=== PATIENT | female | born 1930 | race Caucasian/White ===

== ENCOUNTER 2017-08-06 02:59 | Emergency (ER) | payer OTHER ==
[2017-08-06] MEDS ORDERED: LIDOCAINE 1% 20 ML MDV ONE (03:36)
--- NOTE | 2017-08-06 04:51 | ER ---
Nurse's Notes [facility] Name: Martine Iyer Age: 87 yrs Sex: Female : 1930 Arrival Date: 08/06/2017 Time: 03:01 Bed 17 Private MD: Branden Altamirano Diagnosis: Superficial laceration of left forearm Presentation: 08/06 03:05 Presenting complaint: Patient states: She was getting up to go to the restroom when she ea fell back, she states " I kind of twisted myself and fell onto my bottom and hit the door facing". Pt denies LOC. States " I don't think I hit my head, I hit my left shoulder but I don't remember hitting my head" Reports she has a gash to her left arm. Care prior to arrival: None. Mechanism of Injury: Fall from standing position. Trauma event details: Injury occurred in the [facility], Injury occurred: at home. Injury occurred: August 06, 2017 Injury occurred at: 02:50. 03:05 Acuity: KEAGAN 3 ea 03:05 Method Of Arrival: Wheelchair ea 03:30 Initial Sepsis Screen: Does the patient meet any 2 criteria? No. Patient's initial ea sepsis screen is negative. Does the patient have a suspected source of infection? Yes: Skin breakdown/wound. 03:30 Transition of care: patient was not received from another setting of care. Onset of ea symptoms was August 06, 2017. 03:31 Initial Sepsis Screen: Does the patient meet any 2 criteria?. ea Trauma Activation: Not Applicable Physician: ED Physician; Name: ; Notified At: ; Arrived At: Physician: General Surgeon; Name: ; Notified At: ; Arrived At: Physician: Radiology; Name: ; Notified At: ; Arrived At: Physician: Respiratory; Name: ; Notified At: ; Arrived At: Physician: Lab; Name: ; Notified At: ; Arrived At: Historical: - Allergies: 03:35 Coumadin; ea - Home Meds: 03:35 Bystolic 15 mg Oral tab 1 tab once daily [Active]; clonidine HCl 0.1 mg Oral tab 1 tab ea once daily [Active]; Eliquis 2.5 mg Oral tab 1 tab 2 times per day [Active]; Xanax 1 mg Oral tab 1 tab 3 times per day [Active]; levothyroxine 137 mcg tab 1 tab once daily [Active]; losartan 100 mg Oral tab 1 tab once daily [Active]; Lipitor 20 mg Oral tab 1 tab once daily [Active]; - PMHx: 03:35 Arthritis; Atrial Fib; Hypertension; Hypothyroidism; skin ca; ea - PSHx: 03:35 Knee surgery; Hysterectomy; shoulder; hand; ea - Immunization history:: Adult Immunizations up to date. - Immunization history: Last tetanus immunization: - up to date. - Family history:: not pertinent. - Social history:: Smoking status: Patient/guardian denies using tobacco. - Hospitalizations: : No recent hospitalization is reported. Screenin:29 Abuse screen: Denies threats or abuse. Nutritional screening: No deficits noted. ea Tuberculosis screening: No symptoms or risk factors identified. Fall Risk None identified. Primary Survey: 03:05 A: Airway: patent. Breathing/Chest: Respiratory pattern: regular, Respiratory effort: ea spontaneous, unlabored. Circulation: Skin color: pink, Skin temperature: warm, dry. Disability Alert. 04:05 Reassessment Airway Airway Patent Breathing/Chest Respiratory pattern Regular ea Respiratory effort Spontaneous Unlabored Circulation Color [place] Disability Alert. Secondary Survey: 03:05 HEENT: No deficits noted. Gastrointestinal: No deficits noted. : No deficits noted. ea Musculoskeletal: Circulation, motion, and sensation intact. Injury Description: Laceration sustained to palmar aspect of left forearm is 2.6 to 7.5 cm long. Assessment: 03:05 General: Appears in no apparent distress. Behavior is calm, cooperative, appropriate ea for age. Pain: Complains of pain in palmar aspect of left forearm Pain currently is 7 out of 10 on a pain scale. Quality of pain is described as burning, Pain began 30 min ago. Neuro: Level of Consciousness is awake, alert, obeys commands, Oriented to person, place, time, situation, Gait is steady, Speech is normal, Facial symmetry appears normal. Cardiovascular: Heart tones S1 S2 present Patient's skin is warm and dry. Respiratory: Airway is patent Respiratory effort is even, unlabored, Respiratory pattern is regular, symmetrical, Breath sounds are clear bilaterally. GI: No signs and/or symptoms were reported involving the gastrointestinal system. : No signs and/or symptoms were reported regarding the genitourinary system. EENT: No signs and/or symptoms were reported regarding the EENT system. Derm: laceration noted to left forearm. Musculoskeletal: Circulation, motion, and sensation intact. Injury Description: Laceration sustained to palmar aspect of left forearm is clean, 2.6 to 7.5 cm long, was sustained less than 30 minutes ago. a small amount of bleeding noted at this time. 03:25 General: Appears in no apparent distress. Behavior is calm, cooperative, appropriate ea for age. Pain: Complains of pain in palmar aspect of left forearm. 04:05 Reassessment: Patient and/or family updated on plan of care and expected duration. Pain ea level reassessed. Patient is alert, oriented x 3, equal unlabored respirations, skin warm/dry/pink. 05:22 Reassessment: Patient and/or family updated on plan of care and expected duration. Pain ea level reassessed. Patient is alert, oriented x 3, equal unlabored respirations, skin warm/dry/pink. Discharge instructions given to patient and family, both verbalized the understanding of instruction. Vital Signs: 03:05 BP 166 / 140; Pulse 77; Resp 18 S; Temp 98.1(O); Pulse Ox 98% on R/A; Weight 56.7 kg; ea Height 5 ft. 2 in. (157.48 cm); Pain 7/10; 05:24 BP 168 / 100; Pulse 78; Resp 18; Temp 98.2(O); Pulse Ox 99% on R/A; ea 03:05 Body Mass Index 22.86 (56.70 kg, 157.48 cm) ea [place] Coma Score: 03:05 Eye Response: spontaneous(4). Verbal Response: oriented(5). Motor Response: obeys ea commands(6). Total: 15. 04:05 Eye Response: spontaneous(4). Verbal Response: oriented(5). Motor Response: obeys ea commands(6). Total: 15. Trauma Score (Adult): 03:05 Eye Response: spontaneous(1); Verbal Response: oriented(1); Motor Response: obeys ea commands(2); Systolic BP: > 89 mm Hg(4); Respiratory Rate: 10 to 29 per min(4); [place] Score: 15; Trauma Score: 12 ED Course: 03:01 Patient arrived in ED. am2 03:01 Branden Altamirano MD is Private Physician. am2 03:03 Qamar Hernandez MD is Attending Physician. rn 03:05 Patient has correct armband on for positive identification. Bed in low position. Call ea light in reach. Side rails up X2. 03:05 Patient maintains SpO2 saturation greater than 95% on room air. Thermoregulation: warm ea blanket given to patient. 03:18 Piper Nagel, RN is Primary Nurse. ea 03:25 Triage completed. ea 03:31 Arm band placed on right wrist. ea 04:40 Assist provider with laceration repair on palmar aspect of left forearm that was ea between 2.6 to 7.5 cm using sutures. Set up tray. Performed by Qamar Hernandez MD Dressed with 4X4s, Kerlix, Neosporin, Patient tolerated well. 04:49 Branden Altamirano MD is Referral Physician. rn 05:18 XRAY Humerus LEFT In Process Unspecified. EDMS 05:18 XRAY Forearm LEFT In Process Unspecified. EDMS 05:22 Patient did not have IV access during this emergency room visit. ea Administered Medications: 04:25 Drug: Lidocaine (1 %) 1 vials {Note: administered by provider.} Volume: 20 ml; Route: ea Infiltration; 05:22 Follow up: Response: No adverse reaction ea Intake: 05:22 PO: 0ml; Total: 0ml. ea Outcome: 04:50 Discharge ordered by . rn 05:21 Discharged to home via wheelchair, with family. ea 05:21 Condition: improved 05:21 Discharge instructions given to patient, family, Instructed on discharge instructions, follow up and referral plans. Demonstrated understanding of instructions, follow-up care, wound care. 05:22 Patient's length of stay was not longer than 2 hours. ea 05:25 Patient left the ED. ea Signatures: Dispatcher [employer] EDMS Qamar Hernandez MD MD rn Moreno, Amanda am2 Piper Nagel RN RN ea
--- NOTE | 2017-08-06 04:51 | EDPHYS ---
Physician Documentation [facility] Name: Martine Iyer Age: 87 yrs Sex: Female : 1930 Arrival Date: 08/06/2017 Time: 03:01 Bed 17 Private MD: Branden Altamirano ED Physician Qamar Hernandez HPI: 08/06 03:21 This 87 yrs old Female presents to ER via Unassigned with complaints of Fall rn Injury, Abrasion(s). 03:21 Details of fall: The patient fell from an upright position, while walking. Onset: The rn symptoms/episode began/occurred just prior to arrival. Associated injuries: The patient sustained left arm. Severity of symptoms: At their worst the symptoms were mild, in the emergency department the symptoms are unchanged. The patient has experienced similar episodes in the past. The patient has not recently seen a physician. Reports woke up to use bathroom, lost her balance, hit left arm on floor, + laceration, doesn't feel broken, tetanus up to date. No other injuries. . Historical: - Allergies: 03:35 Coumadin; ea - Home Meds: 03:35 Bystolic 15 mg Oral tab 1 tab once daily [Active]; clonidine HCl 0.1 mg Oral tab 1 tab ea once daily [Active]; Eliquis 2.5 mg Oral tab 1 tab 2 times per day [Active]; Xanax 1 mg Oral tab 1 tab 3 times per day [Active]; levothyroxine 137 mcg tab 1 tab once daily [Active]; losartan 100 mg Oral tab 1 tab once daily [Active]; Lipitor 20 mg Oral tab 1 tab once daily [Active]; - PMHx: 03:35 Arthritis; Atrial Fib; Hypertension; Hypothyroidism; skin ca; ea - PSHx: 03:35 Knee surgery; Hysterectomy; shoulder; hand; ea - Immunization history:: Adult Immunizations up to date. - Immunization history: Last tetanus immunization: - up to date. - Family history:: not pertinent. - Social history:: Smoking status: Patient/guardian denies using tobacco. - Hospitalizations: : No recent hospitalization is reported. ROS: 03:21 Constitutional: Negative for fever, chills, and weight loss, Eyes: Negative for injury, rn pain, redness, and discharge, Neck: Negative for injury, pain, and swelling, Cardiovascular: Negative for chest pain, palpitations, and edema, Respiratory: Negative for shortness of breath, cough, wheezing, and pleuritic chest pain, Abdomen/GI: Negative for abdominal pain, nausea, vomiting, diarrhea, and constipation, MS/Extremity: + left arm injury Skin: + laceration to left forearm Neuro: Negative for headache, weakness, numbness, tingling, and seizure. Exam: 03:21 Constitutional: This is a well developed, well nourished patient who is awake, alert, rn and in no acute distress. Head/Face: Normocephalic, atraumatic. Eyes: Pupils equal round and reactive to light, extra-ocular motions intact. Lids and lashes normal. Conjunctiva and sclera are non-icteric and not injected. Cornea within normal limits. Periorbital areas with no swelling, redness, or edema. Neck: Trachea midline, no thyromegaly or masses palpated, and no cervical lymphadenopathy. Supple, full range of motion without nuchal rigidity, or vertebral point tenderness. No Meningismus. Cardiovascular: Regular rate, no gallops, murmurs, or rubs. No pulse deficits. Respiratory: Lungs have equal breath sounds bilaterally, clear to auscultation and percussion. No rales, rhonchi or wheezes noted. No increased work of breathing, no retractions or nasal flaring. Abdomen/GI: Soft, non-tender, with normal bowel sounds. No distension or tympany. No guarding or rebound. No evidence of tenderness throughout. Back: No spinal tenderness. No costovertebral tenderness. Full range of motion. MS/ Extremity: Pulses equal, no cyanosis. Neurovascular intact. Full, normal range of motion. Equal circumference. 6 cm curvilinear superficial laceration left mid forearm, no active bleeding Neuro: Awake and alert, GCS 15, oriented to person, place, time, and situation. Cranial nerves II-XII grossly intact. Motor strength 5/5 in all extremities. Sensory grossly intact. Vital Signs: 03:05 BP 166 / 140; Pulse 77; Resp 18 S; Temp 98.1(O); Pulse Ox 98% on R/A; Weight 56.7 kg; ea Height 5 ft. 2 in. (157.48 cm); Pain 7/10; 05:24 BP 168 / 100; Pulse 78; Resp 18; Temp 98.2(O); Pulse Ox 99% on R/A; ea 03:05 Body Mass Index 22.86 (56.70 kg, 157.48 cm) ea [place] Coma Score: 03:05 Eye Response: spontaneous(4). Verbal Response: oriented(5). Motor Response: obeys ea commands(6). Total: 15. 04:05 Eye Response: spontaneous(4). Verbal Response: oriented(5). Motor Response: obeys ea commands(6). Total: 15. Trauma Score (Adult): 03:05 Eye Response: spontaneous(1); Verbal Response: oriented(1); Motor Response: obeys ea commands(2); Systolic BP: > 89 mm Hg(4); Respiratory Rate: 10 to 29 per min(4); [place] Score: 15; Trauma Score: 12 Laceration: 04:45 Wound Repair of 6cm ( 2.4in ) subcutaneous laceration to palmar aspect of left forearm. rn Distal neuro/vascular/tendon intact. Anesthesia: Wound infiltrated with 5 mls of 1% lidocaine. Wound prep: Extensive cleansing by nurse, Wound irrigation by nurse. Skin closed with 8 4-0 Prolene using interrupted sutures and sterile technique. Dressed with Neosporin, Kerlix. Patient tolerated well. MDM: 03:03 Patient medically screened. rn 04:45 Differential diagnosis: contusion, fracture, laceration. Data reviewed: vital signs, rn nurses notes, radiologic studies, plain films, and as a result, I will discharge patient. Counseling: I had a detailed discussion with the patient and/or guardian regarding: the historical points, exam findings, and any diagnostic results supporting the discharge/admit diagnosis, radiology results, the need for outpatient follow up, to return to the emergency department if symptoms worsen or persist or if there are any questions or concerns that arise at home. Response to treatment: the patient's symptoms have mildly improved after treatment, and as a result, I will discharge patient. Special discussion: I discussed with the patient/guardian in detail that at this point there is no indication for admission to the hospital. It is understood, however, that if the symptoms persist or worsen the patient needs to return immediately for re-evaluation. 08/06 03:17 Order name: XRAY Humerus LEFT rn 08/06 03:17 Order name: XRAY Forearm LEFT rn 08/06 03:17 Order name: Prolene, Sutures; Complete Time: 03:45 rn 08/06 03:17 Order name: Dressing - Wound; Complete Time: 03:45 rn 08/06 03:17 Order name: Gloves, Sterile; Complete Time: 03:45 rn 08/06 03:17 Order name: Setup Suture Tray; Complete Time: 03:45 rn Administered Medications: 04:25 Drug: Lidocaine (1 %) 1 vials {Note: administered by provider.} Volume: 20 ml; Route: ea Infiltration; 05:22 Follow up: Response: No adverse reaction ea Disposition: 08/06/17 04:50 Discharged to Home. Impression: Superficial laceration of left forearm. - Condition is Stable. - Discharge Instructions: Laceration Care, Adult. - Medication Reconciliation Form, Thank You Letter, Antibiotic Education, Prescription Opioid Use form. - Follow up: Branden Altamirano MD; When: 14 days; Reason: Staple/Suture removal. - Problem is new. - Symptoms have improved. Signatures: Dispatcher [employer] EDMS Qamar Hernandez MD MD rn Antunez, Elena, RN RN ea Corrections: (The following items were deleted from the chart) 03:24 03:21 Constitutional: This is a well developed, well nourished patient who is awake, rn alert, and in no acute distress. Head/Face: Normocephalic, atraumatic. Eyes: Pupils equal round and reactive to light, extra-ocular motions intact. Lids and lashes normal. Conjunctiva and sclera are non-icteric and not injected. Cornea within normal limits. Periorbital areas with no swelling, redness, or edema. Neck: Trachea midline, no thyromegaly or masses palpated, and no cervical lymphadenopathy. Supple, full range of motion without nuchal rigidity, or vertebral point tenderness. No Meningismus. Cardiovascular: Regular rate, no gallops, murmurs, or rubs. No pulse deficits. Respiratory: Lungs have equal breath sounds bilaterally, clear to auscultation and percussion. No rales, rhonchi or wheezes noted. No increased work of breathing, no retractions or nasal flaring. Abdomen/GI: Soft, non-tender, with normal bowel sounds. No distension or tympany. No guarding or rebound. No evidence of tenderness throughout. MS/ Extremity: Pulses equal, no cyanosis. Neurovascular intact. Full, normal range of motion. Equal circumference. 6 cm curvilinear superficial laceration left mid forearm, no active bleeding Neuro: Awake and alert, GCS 15, oriented to person, place, time, and situation. Cranial nerves II-XII grossly intact. Motor strength 5/5 in all extremities. Sensory grossly intact. rn
[2017-08-06 05:30] VITALS: BP 168/100; TEMP 98.2; O2SAT 99
--- NOTE | 2017-08-06 14:46 | RAD REPORT ---
EXAM DESCRIPTION: RAD - Forearm Left - 08/06/2017 5:19 am CLINICAL HISTORY: Fall, arm pain Trans correction system malfunction precluded completion of the report earlier. Exam is being redicta john. COMPARISON: None. FINDINGS: No acute fracture changes are seen. Advanced degenerative changes are present at both the elbow and wrist joints. Of the joints are limited in assessment but no fracture or gross abnormalitie s seen. Bones are osteopenic. No foreign body in the soft tissues. Numerous air densities are present in the mid forearm presumed t o be from soft tissue injury. History would not suggest soft tissue infection process. 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 Elbow or wrist directed imaging would be recommended for localizing symptoms. Soft tissue wound with air densities present. This is presumed to be related to trauma. No history of infection provided.
--- NOTE | 2017-08-06 14:47 | RAD REPORT ---
EXAM DESCRIPTION: RAD - Humerus Left - 08/06/2017 5:18 am CLINICAL HISTORY: Fall, arm pain Tube Station Attendant system malfunction precluded earlier written report. COMPARISON: None. FINDINGS: No fracture or dislocation identified. 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 There is significant osteopenic changes in the proximal humerus. The acromial humeral joint space is effac ed indicating chronic rotator cuff tear. No pathologic bone process suspected. Advanced elbow joint d egenerative changes are present. Acute finding is not suspected though assessment is limited. No fore ign body or other soft tissue abnormality. IMPRESSION: Osteopenic and degenerative changes are present as detailed. No acute finding identifiab le.
== END 2017-08-06 05:25 | disposition home or self-care (01) ==
LOC: ER 02:59
PROC: 0JQH0ZZ Repair Left Lower Arm Subcutaneous Tissue and Fascia, Open Approach (ICD-10-PCS; principal; 2017-08-06)
DX: S51.812A Laceration without foreign body of left forearm, initial encounter (principal); W18.39XA Other fall on same level, initial encounter; Y93.89 Activity, other specified; Y92.002 Bathroom of unspecified non-institutional (private) residence as the place of occurrence of the external cause; Z79.01 Long term (current) use of anticoagulants; Z88.8 Allergy status to other drugs, medicaments and biological substances; Z85.828 Personal history of other malignant neoplasm of skin; I10 Essential (primary) hypertension; I48.91 Unspecified atrial fibrillation; E03.9 Hypothyroidism, unspecified
CPT/HCPCS: 99284

== ENCOUNTER 2017-08-12 07:41 | Emergency (ER) | payer OTHER ==
[2017-08-12] MEDS ORDERED: HYDROCODONE/APAP 10/325 TAB ONE (09:25)
[2017-08-12 10:02] LABS: Potassium 3.2 mEq/L (3.6-5.0); Protime INR 1.25
[2017-08-12 10:18] LABS: Absolute Lymphocytes (CBC) 0.5 K/uL (0.7-4.9); Absolute Monocytes 0.5 K/uL (0.1-1.3); Absolute Neutrophil 6.7 K/uL (1.8-8.0); Basophils % 0.4 % (0-1.3); Eosinophils % 0.5 % (0-4.4); Hematocrit 33.3 % (36.0-45.0); MCH 29.2 pg (27.0-35.0); MCV 85.1 fL (80-100); MPV 8.1 fL (7.6-11.3); Monocytes % 6.1 % (3.3-12.3); RBC Red Blood Cell Count 3.92 M/uL (3.86-4.86)
--- NOTE | 2017-08-12 11:06 | RAD REPORT ---
EXAM DESCRIPTION: CT - Upper Extremity W/ Cont - 08/12/2017 10:43 am CLINICAL HISTORY: Left arm injury status post fall 6 days ago. Left arm pain and swelling COMPARISON: Ultrasound August 12, 2017 TECHNIQUE: Computed axial tomography of the left forearm was obtained. Coronal and sagittal reconstr uction was performed. 50 cc Isovue-[address] scans are performed using dose optimization technique as appropriate and may include automated exposure control or mA/KV adjustment according to patient size. FINDINGS: A 9 x 5 centimeter hematoma is present within the volar soft tissue of the mid forearm. It contains several air bubbles. A skin laceration is seen. Several curvilinear areas of increased density compatible with contrast are present within the hemato ma. A fracture is not visualized. 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 Several curvilinear areas increased density compatible with contrast indicate active extravasation fr om a vascular tear. Air bubbles within the hematoma presumably the sequela of the soft tissue laceration. Another conside ration is that there is a superimposed infection
--- NOTE | 2017-08-12 11:07 | RAD REPORT ---
EXAM DESCRIPTION: VASExtremity Venous [employer] Ltd08/12/2017 8:45 am CLINICAL HISTORY: Left arm swelling COMPARISON: None FINDINGS: The left internal jugular, left subclavian, left cephalic, left axillary, left brachial, l eft basilic, veins are generally compressible and demonstrate augmentation. Doppler demonstrates good flow. An 9 x 5 centimeter heterogeneous fluid collection within the left forearm represents a hematoma IMPRESSION: No evidence of thrombus within the veins of the left upper extremity 9 centimeter hematoma within the left forearm
[2017-08-12] MEDS ORDERED: cloNIDine HCl 0.1 MG TAB ONE (11:27)
--- NOTE | 2017-08-12 12:13 | ER ---
Nurse's Notes [facility] Name: Martine Iyer Age: 87 yrs Sex: Female : 1930 Arrival Date: 08/12/2017 Time: 07:44 Bed 17 [facility] MD: Diagnosis: Forearm hematoma;Traumatic vascular injury of left forearm Presentation: 08/12 07:59 Presenting complaint: Child states: daughter reports that patient fell 6 days ago, was ss seen in ER and had Xrays taken and sutures placed. Pt and family reports significant increase in swelling that began last night to L forearm. Transition of care: patient was not received from another setting of care. Onset of symptoms was August 06, 2017. Initial Sepsis Screen: Does the patient meet any 2 criteria? No. Patient's initial sepsis screen is negative. Does the patient have a suspected source of infection? No. Patient's initial sepsis screen is negative. Care prior to arrival: None. 07:59 Method Of Arrival: Wheelchair ss 07:59 Acuity: KEAGAN 3 ss Historical: - Allergies: 08:03 Coumadin; ss - Home Meds: 09:40 Bystolic 15 mg Oral tab 1 tab once daily [Active]; clonidine HCl 0.1 mg Oral tab 1 tab jl7 once daily [Active]; Eliquis 2.5 mg Oral tab 1 tab 2 times per day [Active]; levothyroxine 137 mcg tab 1 tab once daily [Active]; Lipitor 20 mg Oral tab 1 tab once daily [Active]; losartan 100 mg Oral tab 1 tab once daily [Active]; Xanax 1 mg Oral tab 1 tab 3 times per day [Active]; - PMHx: 08:03 Arthritis; Atrial Fib; Hypertension; Hypothyroidism; skin ca; ss - PSHx: 08:03 Knee surgery; Hysterectomy; shoulder; hand; ss - Immunization history:: Adult Immunizations up to date. - Social history:: Smoking status: Patient/guardian denies using tobacco. - Family history:: not pertinent. - Hospitalizations: : No recent hospitalization is reported. Screenin:35 Abuse screen: Denies threats or abuse. Denies injuries from another. Nutritional jl7 screening: No deficits noted. Tuberculosis screening: No symptoms or risk factors identified. Fall Risk IV access (20 points). Gait- Normal/Bed Rest/Wheelchair (0 pts) Total [place] Fall Scale indicates No Risk (0-24 pts). Assessment: 08:15 General: Appears in no apparent distress. uncomfortable, Behavior is calm, cooperative, jl7 appropriate for age. Pain: Complains of pain in dorsal aspect of left forearm Pain does not radiate. Pain currently is 10 out of 10 on a pain scale. Quality of pain is described as throbbing, Pain began 1 day ago. Is continuous. Neuro: Level of Consciousness is awake, alert, obeys commands, Oriented to person, place, time, situation. Cardiovascular: Patient's skin is warm and dry. Respiratory: Airway is patent Respiratory effort is even, unlabored, Respiratory pattern is regular, symmetrical. GI: No signs and/or symptoms were reported involving the gastrointestinal system. : No signs and/or symptoms were reported regarding the genitourinary system. EENT: No signs and/or symptoms were reported regarding the EENT system. Derm: Skin is pink, warm \T\ dry. Musculoskeletal: swelling and bruising noted to left forearm. 09:15 Reassessment: No changes from previously documented assessment. Patient and/or family jl7 updated on plan of care and expected duration. Pain level reassessed. Patient is alert, oriented x 3, equal unlabored respirations, skin warm/dry/pink. 10:30 Reassessment: Patient and/or family updated on plan of care and expected duration. Pain jl7 level reassessed. Patient is alert, oriented x 3, equal unlabored respirations, skin warm/dry/pink. pt reports decreased pain, rated 7/10 at this time. 11:15 Reassessment: Dr. Hernandez at bedside discussing plan of care. jl7 12:15 Reassessment: Patient and/or family updated on plan of care and expected duration. Pain jl7 level reassessed. Patient is alert, oriented x 3, equal unlabored respirations, skin warm/dry/pink. Vital Signs: 08:03 BP 206 / 125; Pulse 67; Resp 16; Temp 98.0(TE); Pulse Ox 98% on R/A; ss 09:35 BP 192 / 91; Pulse 85; Resp 16; Pulse Ox 94% ; Pain 10/10; jl7 11:00 BP 222 / 107; Pulse 55; Resp 16; Pulse Ox 95% ; jl7 12:00 BP 162 / 92; Pulse 57; Resp 16; Pulse Ox 95% ; jl7 13:00 BP 159 / 85; Pulse 56; Resp 16; Pulse Ox 96% ; jl7 ED Course: 07:44 Patient arrived in ED. sb2 07:52 Qamar Hernandez MD is Attending Physician. rn 08:00 Lesia Liang RN is Primary Nurse. jl7 08:02 Triage completed. ss 08:03 Arm band placed on right wrist. ss 08:24 Ultrasound completed. Patient tolerated well. Notified Primary Nurse Stacy with prelim.sg3 08:40 First set of blood cultures drawn. Missed attempt(s): 22 gauge in right forearm. jl7 08:45 US Extremity Venous Uni Ltd In Process Unspecified. EDMS 08:58 Second set of blood cultures drawn by me. Missed attempt(s): 22 gauge in right jl7 antecubital area. 09:12 Initial lab(s) drawn, by ED staff, sent to lab. Inserted saline lock: 22 gauge in right jl7 upper arm, using aseptic technique. Blood collected. inserted by KEE Izaguirre. 09:35 Patient has correct armband on for positive identification. Placed in gown. Bed in low jl7 position. Call light in reach. Side rails up X 1. Pulse ox on. NIBP on. 10:42 CT completed. Patient tolerated procedure well. Patient moved back from CT. vr 10:44 Upper Extremity W/ Cont In Process Unspecified. EDMS 11:26 initiated transfer with [facility] with Ginette for Vascular. eb 11:52 [place] Doctor connected with ED Doctor for pt consultation on pt transfer. eb 12:07 administrative approval for [place] given by Ginette Driver RN, Accepting physician eb is Dr. Federico Ochoa. Pt is to go to the ED. Report to be called to [phone]. 13:15 No provider procedures requiring assistance completed. Patient transferred, IV remains jl7 in place. Administered Medications: 09:24 Drug: [place] 10 mg-325 mg 1 tabs Route: PO; jl7 10:30 Follow up: Response: No adverse reaction; Pain is decreased jl7 11:28 Drug: cloNIDine 0.2 mg Route: PO; jl7 12:00 Follow up: Response: Blood pressure is lowered jl7 12:30 Drug: Zofran 4 mg Route: PO; jl7 Outcome: 12:13 ER care complete, transfer ordered by . rn 13:15 Transferred by ground EMS to [facility], Transfer form completed. X-rays sent jlNasrin w/ patient. 13:15 Condition: stable 13:15 Discharge instructions given to patient, Instructed on the need for transfer, Demonstrated understanding of instructions. 13:17 Patient left the ED. jl7 Signatures: Dispatcher [employer] EDMS Qamar Hernandez MD MD rn Smirch, Shelby, RN RN ss Davis, Victoria vr Leal, Jahala, RN RN jl7 Belem Mccarthy sg3 Sapna Betancur Elizabeth eb Corrections: (The following items were deleted from the chart) 08:44 08:40 Ultrasound completed. Patient tolerated well. sg3 sg3 08:44 08:40 Notified Primary Nurse Stacy with prelim. sg3 sg3 09:34 08:15 Reassessment: No changes from previously documented assessment. Patient and/or jl7 family updated on plan of care and expected duration. Pain level reassessed. Patient is alert, oriented x 3, equal unlabored respirations, skin warm/dry/pink. jl7
--- NOTE | 2017-08-12 12:14 | EDPHYS ---
Physician Documentation [facility] Name: Martine Iyer Age: 87 yrs Sex: Female : 1930 Arrival Date: 08/12/2017 Time: 07:44 Bed 17 Private MD: ED Physician Qamar Hernandez HPI: 08/12 09:02 This 87 yrs old Female presents to ER via Wheelchair with complaints of Arm rn Problem. 09:02 The patient or guardian complains of pain, swelling. The complaints affect the dorsal rn aspect of left forearm. Onset: The symptoms/episode began/occurred yesterday. Associated signs and symptoms: Pertinent positives: pain, swelling, Pertinent negatives: deformity, fever, numbness, tingling, weakness. Severity of symptoms: At their worst the symptoms were moderate, in the emergency department the symptoms are unchanged. The patient has not experienced similar symptoms in the past. The patient has been recently seen at the [facility] Emergency Department. Seen last week for fall, had laceration sutured, was doing ok, now approx 6 days after injury woke up with swelling and bruising to left forearm, no weakness, + mild pain, no new injury, on eliquis.. Historical: - Allergies: 08:03 Coumadin; ss - Home Meds: 09:40 Bystolic 15 mg Oral tab 1 tab once daily [Active]; clonidine HCl 0.1 mg Oral tab 1 tab jl7 once daily [Active]; Eliquis 2.5 mg Oral tab 1 tab 2 times per day [Active]; levothyroxine 137 mcg tab 1 tab once daily [Active]; Lipitor 20 mg Oral tab 1 tab once daily [Active]; losartan 100 mg Oral tab 1 tab once daily [Active]; Xanax 1 mg Oral tab 1 tab 3 times per day [Active]; - PMHx: 08:03 Arthritis; Atrial Fib; Hypertension; Hypothyroidism; skin ca; ss - PSHx: 08:03 Knee surgery; Hysterectomy; shoulder; hand; ss - Immunization history:: Adult Immunizations up to date. - Social history:: Smoking status: Patient/guardian denies using tobacco. - Family history:: not pertinent. - Hospitalizations: : No recent hospitalization is reported. ROS: 09:02 Constitutional: Negative for fever, chills, and weight loss, Eyes: Negative for injury, rn pain, redness, and discharge, Neck: Negative for injury, pain, and swelling, Cardiovascular: Negative for chest pain, palpitations, and edema, Respiratory: Negative for shortness of breath, cough, wheezing, and pleuritic chest pain, Abdomen/GI: Negative for abdominal pain, nausea, vomiting, diarrhea, and constipation, Back: Negative for injury and pain, MS/Extremity: + injury and swelling Neuro: Negative for headache, weakness, numbness, tingling, and seizure. Exam: 09:02 Constitutional: This is a well developed, well nourished patient who is awake, alert, rn and in no acute distress. Head/Face: Normocephalic, atraumatic. MS/ Extremity: Pulses equal, no cyanosis. Neurovascular intact. Full, normal range of motion. + large hematoma and ecchymosis to left mid/distal forearm, + mild warmth, no erythema, firm Vital Signs: 08:03 BP 206 / 125; Pulse 67; Resp 16; Temp 98.0(TE); Pulse Ox 98% on R/A; ss 09:35 BP 192 / 91; Pulse 85; Resp 16; Pulse Ox 94% ; Pain 10/10; jl7 11:00 BP 222 / 107; Pulse 55; Resp 16; Pulse Ox 95% ; jl7 12:00 BP 162 / 92; Pulse 57; Resp 16; Pulse Ox 95% ; jl7 13:00 BP 159 / 85; Pulse 56; Resp 16; Pulse Ox 96% ; jl7 MDM: 07:52 Patient medically screened. rn 11:23 ED course: signs of vascular injury on CT scan of arm, attempting transfer given technical internship injury, anticoagulated, and result of trauma 5 days ago. . 12:11 Differential diagnosis: contusion, hematoma, vascular injury. Data reviewed: vital rn signs, nurses notes, lab test result(s), radiologic studies, CT scan, doppler, and as a result, I will admit patient. Counseling: I had a detailed discussion with the patient and/or guardian regarding: the historical points, exam findings, and any diagnostic results supporting the discharge/admit diagnosis, lab results, radiology results, the need to transfer to another facility, for higher level of care, [facility] does not immediately have the required specialist. ED course: Accepted for transfer by trauma service after consultation with vascular service recommended trauma admission.. 08/12 08:03 Order name: CBC with Diff; Complete Time: 10:22 rn 08/12 08:03 Order name: Basic Metabolic Panel; Complete Time: 10:22 rn 08/12 08:03 Order name: Protime (+inr); Complete Time: 10:22 rn 08/12 08:03 Order name: Ptt, Activated; Complete Time: 10:22 rn 08/12 08:03 Order name: Blood Culture Adult (2) rn 08/12 08:03 Order name: Procalcitonin; Complete Time: 10:33 rn 08/12 08:03 Order name: IV Start; Complete Time: 09:31 rn 08/12 08:03 Order name: US Extremity Venous Uni Ltd; Complete Time: 11:12 rn 08/12 08:07 Order name: Upper Extremity W/ Cont; Complete Time: 11:12 EDMS Administered Medications: 09:24 Drug: [place] 10 mg-325 mg 1 tabs Route: PO; jl7 10:30 Follow up: Response: No adverse reaction; Pain is decreased jl7 11:28 Drug: cloNIDine 0.2 mg Route: PO; jl7 12:00 Follow up: Response: Blood pressure is lowered jl7 12:30 Drug: Zofran 4 mg Route: PO; jl7 Disposition: 08/12/17 12:13 Transfer ordered to [facility]. Diagnosis are Forearm hematoma, Traumatic vascular injury of left forearm. - Reason for transfer: Higher level of care. - Accepting physician is Gabriela. - Condition is Stable. - Problem is new. - Symptoms have improved. Signatures: Dispatcher [employer] EDMS Qamar Hernandez MD MD rn Smirch, Shelby, RN RN ss Leal, Jahala, RN RN jl7 Corrections: (The following items were deleted from the chart) 13:17 12:13 08/12/2017 12:13 Transfer ordered to [facility]. jl7 Diagnosis is Forearm hematoma; Traumatic vascular injury of left forearm. Reason for transfer: Higher level of care. Accepting physician is Gabriela. Condition is Stable. Problem is new. Symptoms have improved. rn
[2017-08-12] MEDS ORDERED: ONDANSETRON 4 MG/2 ML VIAL ONE (12:20)
[2017-08-12] MEDS ORDERED: ONDANSETRON 4 MG (ODT) TAB ONE (12:30)
[2017-08-12 13:21] VITALS: TEMP 98
[2017-08-12 13:26] VITALS: BP 159/85; O2SAT 96
== END 2017-08-12 13:17 | disposition short-term general hospital (02) ==
LOC: ER 07:41
DX: S55.99 Other specified injury of unspecified blood vessel at forearm level (principal); S50.12XA Contusion of left forearm, initial encounter; I10 Essential (primary) hypertension; I48.91 Unspecified atrial fibrillation; E03.9 Hypothyroidism, unspecified; Z79.01 Long term (current) use of anticoagulants; Z85.828 Personal history of other malignant neoplasm of skin; Z88.8 Allergy status to other drugs, medicaments and biological substances
CPT/HCPCS: 36415; 73201; 80048; 84145; 85025; 85610; 85730; 87040 ×2; 93971; 99285; J2405; Q9967

== ENCOUNTER 2017-09-16 20:42 | Emergency (ER) | payer OTHER ==
[2017-09-16] MEDS ORDERED: cloNIDine HCl 0.1 MG TAB ONE (21:26)
--- NOTE | 2017-09-16 22:47 | ER ---
Nurse's Notes [facility] Name: Martine Iyer Age: 87 yrs Sex: Female : 1930 Arrival Date: 09/16/2017 Time: 20:43 Bed 5 Private MD: Branden Altamirano Diagnosis: Asymptomatic Hypertension Presentation: 09/16 20:46 Presenting complaint: Patient states: "My blood pressure wont come down." Reports high aj1 blood pressure for the past 2 days, has been taking clonidine every 3 hours, her blood pressure will go down for some time, but then it goes back up. Last took clonidine at 1900 today Denies any other symptoms. Transition of care: patient was not received from another setting of care. Onset of symptoms was September 14, 2017. Risk Assessment: Do you want to hurt yourself or someone else? Patient reports no desire to harm self or others. Initial Sepsis Screen: Does the patient meet any 2 criteria? No. Patient's initial sepsis screen is negative. Does the patient have a suspected source of infection? No. Patient's initial sepsis screen is negative. Care prior to arrival: None. 20:46 Method Of Arrival: Wheelchair aj1 20:46 Acuity: KEAGAN 3 aj1 Triage Assessment: 20:52 General: Appears in no apparent distress. comfortable, Behavior is calm, cooperative, aj1 appropriate for age. Pain: Denies pain. Historical: - Allergies: 20:51 Coumadin; aj1 - Home Meds: 20:51 acyclovir 400 mg Oral tab 1 tab 2 times per day [Active]; Bystolic 15 mg Oral tab 1 tab aj1 twice daily [Active]; clonidine HCl 0.1 mg Oral tab 1 tab as needed for DBP greater than 90 [Active]; Eliquis 2.5 mg Oral tab 1 tab daily [Active]; levothyroxine 137 mcg tab 1 tab once daily [Active]; Lipitor 20 mg Oral tab 1 tab once daily [Active]; losartan 100 mg Oral tab 1 tab once daily [Active]; Xanax 1 mg Oral tab 1 tab as needed [Active]; - PMHx: 20:52 Arthritis; Atrial Fib; Hypertension; Hypothyroidism; skin ca; aj1 - PSHx: 20:52 Hysterectomy; bilateral knee replacement; shoulder surgery; bilateral cornea aj1 transplants; - Immunization history:: Flu vaccine is up to date. - Social history:: Smoking status: Patient/guardian denies using tobacco. - Ebola Screening: : Patient denies travel to an Ebola-affected area in the 21 days before illness onset. - Family history:: not pertinent. - Hospitalizations: : No recent hospitalization is reported. Screenin:19 Abuse screen: Denies threats or abuse. Nutritional screening: No deficits noted. jd3 Tuberculosis screening: No symptoms or risk factors identified. Fall Risk Gait- Normal/Bed Rest/Wheelchair (0 pts) Mental Status- Oriented to own ability (0 pts). Total [place] Fall Scale indicates No Risk (0-24 pts). Assessment: 21:20 General: Appears in no apparent distress. Behavior is calm, cooperative, appropriate jd3 for age. Pain: Denies pain. Neuro: Level of Consciousness is awake, alert, obeys commands, Oriented to person, place, time, situation, Moves all extremities. Gait is steady, Speech is normal, Facial symmetry appears normal, Pupils are PERRLA, Intact. Cardiovascular: Heart tones S1 S2 present Capillary refill < 3 seconds Patient's skin is warm and dry. Respiratory: Airway is patent Respiratory effort is even, unlabored, Respiratory pattern is regular, symmetrical, Breath sounds are clear bilaterally. GI: Abdomen is round Bowel sounds present X 4 quads. Abd is soft and non tender X 4 quads. : No signs and/or symptoms were reported regarding the genitourinary system. EENT: No signs and/or symptoms were reported regarding the EENT system. Derm: Skin is healthy with good turgor, Skin is pink, warm \\T\\ dry. Musculoskeletal: Circulation, motion, and sensation intact. Range of motion: intact in all extremities. 22:18 Reassessment: Patient appears in no apparent distress at this time. Patient and/or jd3 family updated on plan of care and expected duration. Pain level reassessed. Patient is alert, oriented x 3, equal unlabored respirations, skin warm/dry/pink. 23:46 Reassessment: Patient is alert, oriented x 3, equal unlabored respirations, skin bb warm/dry/pink. pt and family verbalized understanding of and agree to plan of care discharge instructions given pt assisted to exit via wheelchair accompanied by family. Vital Signs: 20:52 BP 199 / 89; Pulse 78; Resp 18; Pulse Ox 95% on R/A; aj1 22:17 BP 178 / 97; Pulse 43; Resp 17 S; Pulse Ox 95% on R/A; Pain 0/10; jd3 23:47 BP 192 / 108; Pulse 57; Resp 16 S; Temp 98(TE); Pulse Ox 95% on R/A; bb ED Course: 20:43 Patient arrived in ED. am2 20:43 Branden Altamirano MD is Private Physician. am2 20:49 Triage completed. aj1 20:52 Arm band placed on Patient placed in an exam room. aj1 20:57 Qamar Hernandez MD is Attending Physician. rn 21:10 Rush Sethi RN is Primary Nurse. jd3 21:20 Patient has correct armband on for positive identification. Bed in low position. Call jd3 light in reach. Side rails up X 1. Adult w/ patient. 22:47 Branden Altamirano MD is Referral Physician. rn 23:48 No provider procedures requiring assistance completed. Patient did not have IV access bb during this emergency room visit. Administered Medications: 21:28 Drug: cloNIDine 0.1 mg Route: PO; jd3 22:30 Follow up: Response: No adverse reaction; Blood pressure is lowered bb Outcome: 22:47 Discharge ordered by MD. rn 23:48 Discharged to home via wheelchair, with family. bb 23:48 Condition: stable 23:48 Discharge instructions given to patient, family, Instructed on discharge instructions, follow up and referral plans. Demonstrated understanding of instructions, follow-up care. 23:49 Patient left the ED. bb Signatures: Pippa Durant RN RN aj1 Julita Pierce RN RN bb Qamar Hernandez MD MD rn Moreno, Amanda am2 Rush Sethi RN RN jd3 Corrections: (The following items were deleted from the chart) 20:53 20:46 Presenting complaint: Patient states: "My blood pressure wont come down." Reports aj1 high blood pressure for the past 2 days. Denies any other symptoms aj1
--- NOTE | 2017-09-16 22:47 | EDPHYS ---
Physician Documentation [facility] Name: Martine Iyer Age: 87 yrs Sex: Female : 1930 Arrival Date: 09/16/2017 Time: 20:43 Bed 5 Private MD: Branden Altamirano ED Physician Qamar Hernandez HPI: 09/16 22:44 This 87 yrs old Female presents to ER via Wheelchair with complaints of High rn Blood Pressure. 22:44 The patient has elevated blood pressure and discovered this at home. Onset: The rn symptoms/episode began/occurred 3 day(s) ago. Associated signs and symptoms: Pertinent negatives: chest pain, dizziness, dyspnea, headache, lightheadedness, nausea, visual changes, vomiting, weakness. Severity of symptoms: At its worst the blood pressure was moderate, in the emergency department the blood pressure is improved. The patient has experienced similar episodes in the past. Reports high blood pressure for 3 days, otherwise feels normal, no chest pain/headache/neurological complaint, has been taking extra clonidine, helps, then rebounds, came in because BP not improving. . Historical: - Allergies: 20:51 Coumadin; aj1 - Home Meds: 20:51 acyclovir 400 mg Oral tab 1 tab 2 times per day [Active]; Bystolic 15 mg Oral tab 1 tab aj1 twice daily [Active]; clonidine HCl 0.1 mg Oral tab 1 tab as needed for DBP greater than 90 [Active]; Eliquis 2.5 mg Oral tab 1 tab daily [Active]; levothyroxine 137 mcg tab 1 tab once daily [Active]; Lipitor 20 mg Oral tab 1 tab once daily [Active]; losartan 100 mg Oral tab 1 tab once daily [Active]; Xanax 1 mg Oral tab 1 tab as needed [Active]; - PMHx: 20:52 Arthritis; Atrial Fib; Hypertension; Hypothyroidism; skin ca; aj1 - PSHx: 20:52 Hysterectomy; bilateral knee replacement; shoulder surgery; bilateral cornea aj1 transplants; - Immunization history:: Flu vaccine is up to date. - Social history:: Smoking status: Patient/guardian denies using tobacco. - Ebola Screening: : Patient denies travel to an Ebola-affected area in the 21 days before illness onset. - Family history:: not pertinent. - Hospitalizations: : No recent hospitalization is reported. ROS: 22:44 Constitutional: Negative for fever, chills, and weight loss, Eyes: Negative for injury, rn pain, redness, and discharge, Neck: Negative for injury, pain, and swelling, Cardiovascular: Negative for chest pain, palpitations, and edema, Respiratory: Negative for shortness of breath, cough, wheezing, and pleuritic chest pain, Abdomen/GI: Negative for abdominal pain, nausea, vomiting, diarrhea, and constipation, MS/Extremity: Negative for injury and deformity, Skin: Negative for injury, rash, and discoloration, Neuro: Negative for headache, weakness, numbness, tingling, and seizure. Exam: 22:44 Constitutional: This is a well developed, well nourished patient who is awake, alert, rn and in no acute distress. Head/Face: Normocephalic, atraumatic. Eyes: Pupils equal round and reactive to light, extra-ocular motions intact. Lids and lashes normal. Conjunctiva and sclera are non-icteric and not injected. Cornea within normal limits. Periorbital areas with no swelling, redness, or edema. Neck: Trachea midline, no thyromegaly or masses palpated, and no cervical lymphadenopathy. Supple, full range of motion without nuchal rigidity, or vertebral point tenderness. No Meningismus. Cardiovascular: bradycardic, regular, no murmur Respiratory: Lungs have equal breath sounds bilaterally, clear to auscultation and percussion. No rales, rhonchi or wheezes noted. No increased work of breathing, no retractions or nasal flaring. Abdomen/GI: Soft, non-tender, with normal bowel sounds. No distension or tympany. No guarding or rebound. No evidence of tenderness throughout. MS/ Extremity: Pulses equal, no cyanosis. Neurovascular intact. Full, normal range of motion. Equal circumference. Neuro: Awake and alert, GCS 15, oriented to person, place, time, and situation. Cranial nerves II-XII grossly intact. Motor strength 5/5 in all extremities. Sensory grossly intact. Cerebellar exam normal. Vital Signs: 20:52 BP 199 / 89; Pulse 78; Resp 18; Pulse Ox 95% on R/A; aj1 22:17 BP 178 / 97; Pulse 43; Resp 17 S; Pulse Ox 95% on R/A; Pain 0/10; jd3 23:47 BP 192 / 108; Pulse 57; Resp 16 S; Temp 98(TE); Pulse Ox 95% on R/A; bb MDM: 20:57 Patient medically screened. rn 22:44 Differential diagnosis: hypertensive crisis, Malignant HTN, asymptomatic hypertension. rn Data reviewed: vital signs, nurses notes, and as a result, I will discharge patient. Counseling: I had a detailed discussion with the patient and/or guardian regarding: the historical points, exam findings, and any diagnostic results supporting the discharge/admit diagnosis, the need for outpatient follow up, to return to the emergency department if symptoms worsen or persist or if there are any questions or concerns that arise at home. Counseling: I had a detailed discussion with the patient and/or guardian regarding: the presence of at least one elevated blood pressure reading (>120/80) during this emergency department visit. Response to treatment: the patient's symptoms have mildly improved after treatment, and as a result, I will admit patient. Special discussion: I have referred the patient to see his PCP for further evaluation of high blood pressure. I discussed with the patient/guardian in detail that at this point there is no indication for admission to the hospital. It is understood, however, that if the symptoms persist or worsen the patient needs to return immediately for re-evaluation. 09/16 21:19 Order name: EKG; Complete Time: 21:20 rn 09/16 21:19 Order name: EKG - Nurse/Tech; Complete Time: 21:58 rn Administered Medications: 21:28 Drug: cloNIDine 0.1 mg Route: PO; jd3 22:30 Follow up: Response: No adverse reaction; Blood pressure is lowered bb Disposition: 09/16/17 22:47 Discharged to Home. Impression: Asymptomatic Hypertension. - Condition is Stable. - Discharge Instructions: Hypertension. - Medication Reconciliation Form, Thank You Letter, Antibiotic Education, Prescription Opioid Use form. - Follow up: Branden Altamirano MD; When: 2 - 3 days; Reason: Recheck today's complaints, Re-evaluation by your physician. - Problem is an ongoing problem. - Symptoms have improved. Signatures: Pippa Durant RN RN aj1 Julita Pierce RN RN bb Qamar Hernandez MD MD rn Davies, Jonathon, RN RN jd3 Corrections: (The following items were deleted from the chart) 23:49 22:47 09/16/2017 22:47 Discharged to Home. Impression: Asymptomatic Hypertension. bb Condition is Stable. Forms are Medication Reconciliation Form, Thank You Letter, Antibiotic Education, Prescription Opioid Use. Follow up: Branden Altamirano; When: 2 - 3 days; Reason: Recheck today's complaints, Re-evaluation by your physician. Problem is an ongoing problem. Symptoms have improved. rn
[2017-09-16 23:52] VITALS: O2SAT 95
[2017-09-16 23:55] VITALS: BP 192/108; TEMP 98
--- NOTE | 2017-09-17 09:10 | EKG ---
Test Date: 2017-09-16 Test Time: 21:30:43 Business Unit Leader: MAGGIE MEASUREMENT RESULTS: Intervals: Rate: 50 LA: QRSD: 94 QT: 470 QTc: 428 [place]: P: LA: QRS: 62 T: 35 INTERPRETIVE STATEMENTS: Atrial fibrillation with slow ventricular response Abnormal ECG Compared to ECG 09/16/2017 21:30:07 ST (T wave) deviation no longer present Electronically Signed On 09-17-17 09:08:29 CDT by Jessee Nicole
== END 2017-09-16 23:49 | disposition home or self-care (01) ==
LOC: ER 20:42
DX: I10 Essential (primary) hypertension (principal); I48.91 Unspecified atrial fibrillation; E03.9 Hypothyroidism, unspecified; Z79.01 Long term (current) use of anticoagulants; Z88.8 Allergy status to other drugs, medicaments and biological substances; Z85.828 Personal history of other malignant neoplasm of skin
CPT/HCPCS: 93005; 99283

== ENCOUNTER 2018-01-13 16:19 | Emergency (ER) | payer OTHER ==
[2018-01-13] MEDS ORDERED: ONDANSETRON 4 MG/2 ML VIAL ONE (17:14)
[2018-01-13] MEDS ORDERED: FAMOTIDINE 20 MG/2 ML VIAL IV ONE (17:14)
[2018-01-13 17:39] LABS: Protime INR 1.13
[2018-01-13 17:41] LABS: Absolute Lymphocytes (CBC) 0.6 K/uL (0.7-4.9); Absolute Monocytes 0.3 K/uL (0.1-1.3); Basophils % 0.5 % (0-1.3); Eosinophils % 0.3 % (0-4.4); Hematocrit 35.8 % (36.0-45.0); Lymphocytes % 12.5 % (15.3-44.8); MCH 26.9 pg (27.0-35.0); MCV 79.9 fL (80-100); MPV 8.2 fL (7.6-11.3); Monocytes % 6.4 % (3.3-12.3); RBC Red Blood Cell Count 4.48 M/uL (3.86-4.86)
[2018-01-13 18:06] LABS: ALT/SGPT 19 U/L (12-78); AST/SGOT 23 U/L (15-37); Albumin 3.3 g/dL (3.4-5.0); Alkaline Phosphatase 87 U/L (45-117); BUN Blood Urea Nitrogen 19 mg/dL (7-18); Bicarbonate 27 mmol/L (21-32); Bilirubin Direct 0.2 mg/dL (0-0.2); Bilirubin Total 0.6 mg/dL (0.2-1.0); Glucose Level 130 mg/dL (74-106); Magnesium 2.1 mg/dL (1.8-2.4); NT PRO-BNP 1667 pg/mL (<450); Potassium 3.3 mmol/L (3.5-5.1); Protein, Total 7.4 g/dL (6.4-8.2); Sodium Level 135 mmol/L (136-145); Troponin (Emerg Dept Use Only) < 0.02 ng/mL (0.0-0.045)
[2018-01-13] MEDS ORDERED: cloNIDine HCl 0.1 MG TAB ONE (18:09)
[2018-01-13 18:20] LABS: Urine Blood NEGATIVE (NEG); Urine Glucose NEGATIVE (NEG); Urine Protein NEGATIVE (NEG); Urine Specific Gravity 1.015 (1.005-1.030); Urine pH 7.5 (5.0-7.0)
[2018-01-13] MEDS ORDERED: NA CHLORIDE 0.9% 500 ML ONE (18:31)
[2018-01-13] MEDS ORDERED: HYDRALAZINE HCL 20 MG/ML VIAL ONE ×2 (18:54→19:56)
[2018-01-13] MEDS ORDERED: NA CHLORIDE 0.9% 250 ML ONE (19:28)
--- NOTE | 2018-01-13 20:03 | RAD REPORT ---
EXAM DESCRIPTION: CT - Abdomen Pelvis W Contrast - 01/13/2018 7:35 pm CLINICAL HISTORY: Abdominal pain. Nausea COMPARISON: February 2017 TECHNIQUE: Computed axial tomography of the abdomen and pelvis was obtained. 100 cc Isovue-300 is ad ministered intravenously. Oral contrast was given. All CT scans are performed using dose optimization technique as appropriate and may include automated exposure control or mA/KV adjustment according to patient size. FINDINGS: The liver, spleen, pancreas, adrenals and kidneys appear unremarkable. 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
--- NOTE | 2018-01-13 20:05 | RAD REPORT ---
EXAM DESCRIPTION: [place] Single View01/13/2018 5:34 pm CLINICAL HISTORY: abdt pain COMPARISON: February 2017 FINDINGS: The lungs appear clear of acute infiltrate. The heart is moderately enlarged. Aorta is to rtuous/ectatic IMPRESSION: No acute abnormalities displayed
[2018-01-13 20:13] LABS: Urine Bacteria <20 /HPF (<20); Urine Culture Reflex Order NOT NEEDED; Urine RBC <5 /HPF (NONE SEEN)
[2018-01-13] MEDS ORDERED: PANTOPRAZOLE 40 MG INJ ONE (20:15)
--- NOTE | 2018-01-13 21:04 | EDPHYS ---
Physician Documentation [facility] Name: Martine Iyer Age: 87 yrs Sex: Female : 1930 Arrival Date: 01/13/2018 Time: 16:20 Bed 5 Private MD: Branden Altamirano ED Physician Qamar Hernandez HPI: 01/13 17:00 This 87 yrs old Female presents to ER via Wheelchair with complaints of cp Doesn't Feel Right. 17:00 Onset: The symptoms/episode began/occurred 2 day(s) ago. cp 17:00 Associated signs and symptoms: Pertinent positives: abdominal pain, Pertinent cp negatives: chest pain, constipation, cough, diarrhea, fever, headache, vomiting. Patient reports having lower abdominal pain that felt similar to when diagnosed with diverticulitis so she started taking previously prescribed cipro. Historical: - Allergies: 16:24 Coumadin; aa5 - Home Meds: 19:59 acyclovir 400 mg Oral tab 1 tab 2 times per day [Active]; Bystolic 15 mg Oral tab 1 tab ak1 twice daily [Active]; clonidine HCl 0.1 mg Oral tab 1 tab as needed for DBP greater than 90 [Active]; Eliquis 2.5 mg Oral tab 1 tab daily [Active]; levothyroxine 137 mcg tab 1 tab once daily [Active]; Lipitor 20 mg Oral tab 1 tab once daily [Active]; losartan 100 mg Oral tab 1 tab once daily [Active]; Xanax 1 mg Oral tab 1 tab as needed [Active]; - PMHx: 16:24 Arthritis; Atrial Fib; Hypertension; Hypothyroidism; skin ca; aa5 - PSHx: 16:24 Hysterectomy; bilateral knee replacement; shoulder surgery; bilateral cornea aa5 transplants; - Immunization history:: Adult Immunizations unknown. - Social history:: Smoking status: Patient/guardian denies using tobacco. - Ebola Screening: : No symptoms or risks identified at this time. ROS: 17:05 Constitutional: Negative for body aches, chills, fever, poor PO intake. cp 17:05 Eyes: Negative for injury, pain, redness, and discharge. cp 17:05 ENT: Negative for drainage from ear(s), ear pain, sore throat, difficulty swallowing, difficulty handling secretions. 17:05 Cardiovascular: Negative for chest pain, edema, palpitations. 17:05 Respiratory: Negative for cough, shortness of breath, wheezing. 17:05 Abdomen/GI: Positive for abdominal pain, Negative for vomiting, diarrhea, constipation, anorexia, black/tarry stool, rectal bleeding. 17:05 Skin: Negative for cellulitis, rash. 17:05 Neuro: Negative for altered mental status, headache, syncope, near syncope, weakness. 17:05 All other systems are negative. Exam: 17:10 Constitutional: The patient appears in no acute distress, alert, awake, cp non-diaphoretic, non-toxic, well developed, frail. 17:10 Head/Face: Normocephalic, atraumatic. Eyes: Pupils equal round and reactive to light, cp extra-ocular motions intact. Lids and lashes normal. Conjunctiva and sclera are non-icteric and not injected. Cornea within normal limits. Periorbital areas with no swelling, redness, or edema. ENT: Nares patent. No nasal discharge, no septal abnormalities noted. Tympanic membranes are normal and external auditory canals are clear. Oropharynx with no redness, swelling, or masses, exudates, or evidence of obstruction, uvula midline. Mucous membranes moist. Neck: Trachea midline, no thyromegaly or masses palpated, and no cervical lymphadenopathy. Supple, full range of motion without nuchal rigidity, or vertebral point tenderness. No Meningismus. Chest/axilla: Normal chest wall appearance and motion. Nontender with no deformity. No lesions are appreciated. 17:10 Cardiovascular: Rate: normal, Rhythm: regular, Edema: is not appreciated, JVD: is not appreciated. 17:10 Respiratory: the patient does not display signs of respiratory distress, Respirations: normal, no use of accessory muscles, no retractions, no splinting, no tachypnea, labored breathing, is not present, Breath sounds: are clear throughout, no decreased breath sounds, no stridor, no wheezing. 17:10 Abdomen/GI: Inspection: abdomen appears normal, Bowel sounds: active, all quadrants, Palpation: abdomen is soft and non-tender, in all quadrants, rebound tenderness, is not appreciated, voluntary guarding, is not appreciated, involuntary guarding, is not appreciated. 17:10 Back: pain, is absent, ROM is normal, CVA tenderness, is absent. 17:10 Skin: cellulitis, is not appreciated, no rash present. 17:10 Neuro: Orientation: to person, place \T\ time. Mentation: lucid, able to follow commands, Cerebellar function: is grossly normal, Motor: moves all fours, strength is normal, Sensation: no obvious gross deficits. 17:45 ECG was reviewed by the Attending Physician. cp Vital Signs: 16:25 BP 195 / 99; Pulse 62; Resp 16 S; Temp 98.8(TE); Pulse Ox 96% on R/A; Weight 54.43 kg aa5 (R); Height 5 ft. 7 in. (170.18 cm) (R); Pain 0/10; 17:57 BP 226 / 109; Pulse 53; Resp 20; Pulse Ox 100% on R/A; ph 18:54 BP 220 / 99; Pulse 54; Resp 16; Pulse Ox 98% on R/A; ph 19:04 BP 193 / 99; Pulse 51; Resp 18; Pulse Ox 97% on R/A; ph 19:57 BP 192 / 102; Pulse 64; Resp 20; Pulse Ox 100% on R/A; ak1 20:07 BP 170 / 95; Pulse 65; Resp 18; ak1 21:19 BP 166 / 90; Pulse 60; Resp 18; Temp 98.8; Pulse Ox 100% on R/A; Pain 0/10; ak1 16:25 Body Mass Index 18.79 (54.43 kg, 170.18 cm) aa5 17:57 Provider aware of BP, see [facility] MDM: 16:58 Patient medically screened. cp 18:00 Differential diagnosis: viral Infection, bacterial infection, pneumonia UTI, cp gastroenteritis, meningitis, colitis, diverticulitis. 21:02 Data reviewed: vital signs, nurses notes, lab test result(s), EKG, radiologic studies, cp plain films. 21:02 Counseling: I had a detailed discussion with the patient and/or guardian regarding: the cp historical points, exam findings, and any diagnostic results supporting the discharge/admit diagnosis, lab results, radiology results, to return to the emergency department if symptoms worsen or persist or if there are any questions or concerns that arise at home. Response to treatment: the patient's symptoms have markedly improved after treatment, VSS. Patient reports she is feeling better. CT abdomen negative for acute findings. Will discharge to home for continued monitoring. 01/13 16:56 Order name: Basic Metabolic Panel; Complete Time: 18:09 cp 01/13 18:10 Interpretation: Normal except: NA 135; K 3.3; CL 97; GLUC 130; BUN 19; GFR 52; CA 8.3. cp 01/13 16:56 Order name: CBC with Diff; Complete Time: 18:00 cp 01/13 18:00 Interpretation: Normal except: HCT 35.8; MCV 79.9; MCH 26.9; RDW 18.2; SEJAL% 80.3; LYM% cp 12.5; LYMA 0.6. 01/13 16:56 Order name: LFT's; Complete Time: 18:09 cp 01/13 18:10 Interpretation: Normal except: ALB 3.3; GLOB 4.1; A/G 0.8. cp 01/13 16:56 Order name: Magnesium; Complete Time: 18:09 cp 01/13 16:56 Order name: NT PRO-BNP; Complete Time: 18:09 cp 01/13 16:56 Order name: PT-INR; Complete Time: 18:00 cp 01/13 18:38 Interpretation: Normal except: PT 13.3. cp 01/13 16:56 Order name: Troponin (emerg Dept Use Only); Complete Time: 18:09 cp 01/13 18:10 Interpretation: Within normal limits: TROPED < 0.02. cp 01/13 16:56 Order name: Lactate; Complete Time: 18:00 cp 01/13 18:21 Interpretation: Abnormal: LAC 2.1. cp 01/13 16:56 Order name: Procalcitonin; Complete Time: 18:21 cp 01/13 16:56 Order name: Influenza Screen (a \T\ B); Complete Time: 18:00 cp 01/13 16:56 Order name: Blood Culture Adult (2) cp 01/13 16:56 Order name: Urine Microscopic Only; Complete Time: 20:52 cp 01/13 17:45 Order name: Urine Dipstick--Ancillary (enter results); Complete Time: 18:21 eb 01/13 18:21 Interpretation: Normal except: UPH 7.5. cp 01/13 16:56 Order name: XRAY Chest (1 view); Complete Time: 20:05 cp 01/13 16:56 Order name: EKG; Complete Time: 16:56 cp 01/13 16:56 Order name: Cardiac monitoring; Complete Time: 18:42 cp 01/13 16:56 Order name: EKG - Nurse/Tech; Complete Time: 18:42 cp 01/13 16:56 Order name: IV Saline Lock; Complete Time: 17:21 cp 01/13 16:57 Order name: CT Abd/Pelvis - W/Contrast: give oral contrast; Complete Time: 20:05 cp 01/13 20:07 Order name: Lactate; Complete Time: 20:52 cp 01/13 16:56 Order name: Labs collected and sent; Complete Time: 17:21 cp 01/13 16:56 Order name: O2 Per Protocol; Complete Time: 17:21 cp 01/13 16:56 Order name: O2 Sat Monitoring; Complete Time: 17:21 cp 01/13 16:56 Order name: Urine Dipstick-Ancillary (obtain specimen); Complete Time: 18:39 cp 01/13 16:57 Order name: Accucheck Blood Glucose; Complete Time: 17:22 cp EC:45 Rate is 56 beats/min. Rhythm is irregularly irregular. QRS interval is prolonged at 102 cp msec. QT interval is normal. T waves are Inverted in lead III. Interpreted by me. Reviewed by me. Administered Medications: 17:20 Drug: Pepcid 20 mg Route: IVP; Site: right antecubital; ph 18:39 Follow up: Response: No adverse reaction ph 17:20 Drug: Zofran 4 mg Route: IVP; Site: right antecubital; ph 18:39 Follow up: Response: No adverse reaction ph 18:07 Drug: cloNIDine 0.2 mg Route: PO; ph 18:53 Follow up: Response: No adverse reaction; Blood pressure is unchanged ph 18:39 Drug: NS 0.9% 250 ml Route: IV; Rate: bolus; Site: right antecubital; ph 18:53 Follow up: Response: No adverse reaction; IV Status: Completed infusion ph 18:46 Not Given (Physician Discretion): NS 0.9% 1000 ml IV at 75 ml/hr continuous cp 18:53 Drug: hydrALAZINE 5 mg Route: IV; Rate: calculated rate; Site: right antecubital; ph 19:05 Follow up: Response: No adverse reaction; Blood pressure is lowered; IV Status: ph Completed infusion 19:57 Follow up: IV Status: Completed infusion ak1 19:56 Drug: NS 0.9% 250 ml Route: IV; Rate: bolus; Site: right antecubital; ak1 20:34 Follow up: IV Status: Completed infusion ak1 20:10 Drug: ProTONIX 40 mg Route: IVP; Site: right antecubital; ak1 20:34 Follow up: Response: No adverse reaction ak1 20:54 Drug: Potassium Effervescent Tablet 25 mEq Route: PO; ak1 21:19 Follow up: Response: No adverse reaction ak1 Disposition: 01/13/18 21:03 Discharged to Home. Impression: Hypertensive heart disease, Unspecified abdominal pain. - Condition is Stable. - Discharge Instructions: Abdominal Pain, Adult, How to Take Your Blood Pressure, [id number], Managing Your Hypertension. - Prescriptions for Protonix 40 mg Oral Tablet - take 1 tablet by ORAL route once daily; 30 tablet. - Medication Reconciliation Form, Thank You Letter, Antibiotic Education, Prescription Opioid Use form. - Follow up: Branden Altamirano MD; When: 01/15/2018. - Problem is new. - Symptoms have improved. Addendum: 01/16/2018 20:43 Co-signature as Attending Physician, Qamar Hernandez MD. r n Signatures: Dispatcher [employer] EDMS aQmar Hernandez MD MD rn Calderon, Audri RN RN aa5 Kayla Driver RN RN ak1 Aliza Spain RN RN ph Page, Rubens, PA PA cp Corrections: (The following items were deleted from the chart) 01/13 16:57 16:56 MAGNESIUM+C.LAB.BRZ ordered. EDTN EDMS 18:10 18:10 Normal except: NA 135; K 3.3; CL 97; GLUC 130; BUN 19; GFR 52. cp cp 21:20 21:03 01/13/2018 21:03 Discharged to Home. Impression: Hypertensive heart disease; ak1 Unspecified abdominal pain. Condition is Stable. Forms are Medication Reconciliation Form, Thank You Letter, Antibiotic Education, Prescription Opioid Use. Follow up: Branden Altamirano; When: 01/15/2018. Problem is new. Symptoms have improved. cp
--- NOTE | 2018-01-13 21:04 | ER ---
Nurse's Notes [facility] Name: Martine Iyer Age: 87 yrs Sex: Female : 1930 Arrival Date: 01/13/2018 Time: 16:20 Bed 5 Private MD: Branden Altamirano Diagnosis: Hypertensive heart disease;Unspecified abdominal pain Presentation: 01/13 16:23 Presenting complaint: Patient states: "I just haven't been feeling well for the past 2 aa5 days". Pt states "my stomach was hurting from diverticulitis this morning but not anymore". Pt reports nausea, denies vomiting. Pt states "I also feel shaky". Pt states "I also have palpitations". Transition of care: patient was not received from another setting of care. Onset of symptoms was January 2018. Risk Assessment: Do you want to hurt yourself or someone else? Patient reports no desire to harm self or others. Initial Sepsis Screen: Does the patient meet any 2 criteria? No. Patient's initial sepsis screen is negative. Does the patient have a suspected source of infection? No. Patient's initial sepsis screen is negative. Care prior to arrival: None. 16:23 Method Of Arrival: Wheelchair aa5 16:23 Acuity: KEAGAN 3 aa5 Historical: - Allergies: 16:24 Coumadin; aa5 - Home Meds: 19:59 acyclovir 400 mg Oral tab 1 tab 2 times per day [Active]; Bystolic 15 mg Oral tab 1 tab ak1 twice daily [Active]; clonidine HCl 0.1 mg Oral tab 1 tab as needed for DBP greater than 90 [Active]; Eliquis 2.5 mg Oral tab 1 tab daily [Active]; levothyroxine 137 mcg tab 1 tab once daily [Active]; Lipitor 20 mg Oral tab 1 tab once daily [Active]; losartan 100 mg Oral tab 1 tab once daily [Active]; Xanax 1 mg Oral tab 1 tab as needed [Active]; - PMHx: 16:24 Arthritis; Atrial Fib; Hypertension; Hypothyroidism; skin ca; aa5 - PSHx: 16:24 Hysterectomy; bilateral knee replacement; shoulder surgery; bilateral cornea aa5 transplants; - Immunization history:: Adult Immunizations unknown. - Social history:: Smoking status: Patient/guardian denies using tobacco. - Ebola Screening: : No symptoms or risks identified at this time. Screenin:49 Abuse screen: Denies threats or abuse. Denies injuries from another. Nutritional ph screening: No deficits noted. Tuberculosis screening: No symptoms or risk factors identified. Fall Risk No fall in past 12 months (0 pts). No secondary diagnosis (0 pts). IV access (20 points). Ambulatory Aid- None/Bed Rest/Nurse Assist (0 pts). Gait- Weak (10 pts.). Mental Status- Oriented to own ability (0 pts). Total [place] Fall Scale indicates No Risk (0-24 pts). Assessment: 16:40 General: Appears in no apparent distress. comfortable, well groomed, Behavior is calm, ph cooperative, appropriate for age, Denies fever. Pain: Denies pain. Neuro: Level of Consciousness is awake, alert, obeys commands, Oriented to person, place, time, situation, Reports weakness "all over" . Cardiovascular: Reports fatigue, nausea, palpitations, Denies chest pain, Capillary refill < 3 seconds Patient's skin is warm and dry. Respiratory: Airway is patent Respiratory effort is even, unlabored, Respiratory pattern is regular, symmetrical, Denies cough, shortness of breath. GI: Abdomen is round non-distended, Bowel sounds present X 4 quads. Reports bloating, nausea, Patient currently denies diarrhea, vomiting. : No signs and/or symptoms were reported regarding the genitourinary system. Derm: Skin is fragile, is thin, Skin is pink, warm \\T\\ dry. Musculoskeletal: Circulation, motion, and sensation intact. Range of motion: intact in all extremities. 17:46 Reassessment: Patient appears in no apparent distress at this time. Patient and/or ph family updated on plan of care and expected duration. Pain level reassessed. Patient is alert, oriented x 3, equal unlabored respirations, skin warm/dry/pink. Pt assisted to bedside commode, urine sample obtained, pt is now drinking PO contrast for CT, tolerating well, family at bedside. 18:54 Reassessment: Patient appears in no apparent distress at this time. Patient and/or ph family updated on plan of care and expected duration. Pain level reassessed. Patient is alert, oriented x 3, equal unlabored respirations, skin warm/dry/pink. Pt resting quietly, denies pain or nausea at this time, awaiting CT scan, family at bedside. 20:02 Reassessment: Patient appears in no apparent distress at this time. No changes from ak1 previously documented assessment. Patient and/or family updated on plan of care and expected duration. Pain level reassessed. Patient is alert, oriented x 3, equal unlabored respirations, skin warm/dry/pink. pt assisted to bedside commode, had BM. pt assisted with underwear and sanitary pad change after returning from CT. pt BP elevated, provider notified with new orders given. family at bedside. will continue to monitor. 20:32 Reassessment: repeat lactate sent. pears given to pt as requested. ak1 Vital Signs: 16:25 BP 195 / 99; Pulse 62; Resp 16 S; Temp 98.8(TE); Pulse Ox 96% on R/A; Weight 54.43 kg aa5 (R); Height 5 ft. 7 in. (170.18 cm) (R); Pain 0/10; 17:57 BP 226 / 109; Pulse 53; Resp 20; Pulse Ox 100% on R/A; ph 18:54 BP 220 / 99; Pulse 54; Resp 16; Pulse Ox 98% on R/A; ph 19:04 BP 193 / 99; Pulse 51; Resp 18; Pulse Ox 97% on R/A; ph 19:57 BP 192 / 102; Pulse 64; Resp 20; Pulse Ox 100% on R/A; ak1 20:07 BP 170 / 95; Pulse 65; Resp 18; ak1 21:19 BP 166 / 90; Pulse 60; Resp 18; Temp 98.8; Pulse Ox 100% on R/A; Pain 0/10; ak1 16:25 Body Mass Index 18.79 (54.43 kg, 170.18 cm) aa5 17:57 Provider aware of BP, see [facility] ED Course: 16:20 Patient arrived in ED. as 16:21 Branden Altamirano MD is Private Physician. as 16:24 Triage completed. aa5 16:24 Arm band placed on. aa5 16:26 Francis Sands, MILADY is Primary Nurse. la1 16:48 Rubens Frank PA is PHCP. cp 16:48 Qamar Hernandez MD is Attending Physician. cp 17:10 Initial lab(s) drawn, by me, sent to lab. First set of blood cultures drawn. Flu and/or em1 RSV swab sent to lab. Inserted saline lock: 20 gauge in right antecubital area, using aseptic technique. Blood collected. 17:30 Second set of blood cultures drawn by me. em1 17:31 X-ray completed. Portable x-ray completed in exam room. Patient tolerated procedure tm4 well. 17:32 XRAY Chest (1 view) In Process Unspecified. EDMS 17:48 Patient has correct armband on for positive identification. Bed in low position. Call ph light in reach. Side rails up X 1. Pulse ox on. NIBP on. 17:55 EKG done, by ED staff, reviewed by Rubens RIBERA. em1 19:34 CT completed. Patient tolerated procedure well. Patient moved back from CT. jg6 19:35 CT Abd/Pelvis - W/Contrast: give oral contrast In Process Unspecified. EDMS 19:59 No provider procedures requiring assistance completed. ak1 21:02 Branden Altamirano MD is Referral Physician. cp 21:20 IV discontinued, intact, bleeding controlled, No redness/swelling at site. Pressure ak1 dressing applied. Administered Medications: 17:20 Drug: Pepcid 20 mg Route: IVP; Site: right antecubital; ph 18:39 Follow up: Response: No adverse reaction ph 17:20 Drug: Zofran 4 mg Route: IVP; Site: right antecubital; ph 18:39 Follow up: Response: No adverse reaction ph 18:07 Drug: cloNIDine 0.2 mg Route: PO; ph 18:53 Follow up: Response: No adverse reaction; Blood pressure is unchanged ph 18:39 Drug: NS 0.9% 250 ml Route: IV; Rate: bolus; Site: right antecubital; ph 18:53 Follow up: Response: No adverse reaction; IV Status: Completed infusion ph 18:46 Not Given (Physician Discretion): NS 0.9% 1000 ml IV at 75 ml/hr continuous cp 18:53 Drug: hydrALAZINE 5 mg Route: IV; Rate: calculated rate; Site: right antecubital; ph 19:05 Follow up: Response: No adverse reaction; Blood pressure is lowered; IV Status: ph Completed infusion 19:57 Follow up: IV Status: Completed infusion ak1 19:56 Drug: NS 0.9% 250 ml Route: IV; Rate: bolus; Site: right antecubital; ak1 20:34 Follow up: IV Status: Completed infusion ak1 20:10 Drug: ProTONIX 40 mg Route: IVP; Site: right antecubital; ak1 20:34 Follow up: Response: No adverse reaction ak1 20:54 Drug: Potassium Effervescent Tablet 25 mEq Route: PO; ak1 21:19 Follow up: Response: No adverse reaction ak1 Outcome: 21:03 Discharge ordered by MD. cp 21:20 Discharged to home via wheelchair, with family. ak1 21:20 Condition: stable 21:20 Discharge instructions given to patient, family, Instructed on discharge instructions, follow up and referral plans. medication usage, Demonstrated understanding of instructions, follow-up care, medications, Prescriptions given X 1. 21:20 Patient left the ED. ak1 Signatures: Dispatcher [employer] EDMS Heather Bearden tm4 Tirso, Amalia Chahal, Waylon em1 Melody Haynes RN RN aa5 Francis Sands RN RN la1 Krenek, Amber, RN RN ak1 Aliza Spain RN RN ph Monika, Rubens, PA PA torin Larios, Edna j6 Corrections: (The following items were deleted from the chart) 16:26 16:23 Presenting complaint: Patient states: "I just haven't been feeling well for the aa5 past 2 days". Pt states "my stomach was hurting from diverticulitis this morning but not anymore". Pt reports nausea, denies vomiting. Pt states "I also feel shaky" aa5 18:09 17:57 BP 226 / 109; Pulse 53bpm; Resp 20bpm; Pulse Ox 100% RA; ph ph
[2018-01-13] MEDS ORDERED: POTASSIUM 25 MEQ EFFERV TAB ONE (21:07)
[2018-01-13 21:25] VITALS: TEMP 98.8
[2018-01-13 21:29] VITALS: O2SAT 100
[2018-01-13 21:32] VITALS: BP 166/90
--- NOTE | 2018-01-14 10:22 | EKG ---
Test Date: 2018-01-13 Test Time: 17:39:59 Transfer Driver: ENDY MEASUREMENT RESULTS: Intervals: Rate: 56 [place]: QRSD: 102 QT: 478 QTc: 461 [place]: P: [place]: QRS: 57 T: -3 INTERPRETIVE STATEMENTS: Atrial fibrillation with slow ventricular response Nonspecific ST and T wave abnormality Abnormal ECG Compared to ECG 09/16/2017 21:30:43 ST (T wave) deviation now present Electronically Signed On 01-14-18 10:21:26 CDT by Jessee Nicole
== END 2018-01-13 21:20 | disposition home or self-care (01) ==
LOC: ER 16:19
DX: I11.9 Hypertensive heart disease without heart failure (principal); I10 Essential (primary) hypertension; E03.9 Hypothyroidism, unspecified; I48.91 Unspecified atrial fibrillation; Z88.8 Allergy status to other drugs, medicaments and biological substances
CPT/HCPCS: 36415; 71045; 74177; 80048; 80076; 82962; 83605 ×2; 83735; 83880; 84145; 84484; 85025; 85610; 87040 ×2; 87804 ×2; 93005; 96365; 96375; 99285; C9113; J0360 ×2; J2405; Q9967; 81003; 81015

== ENCOUNTER 2018-07-05 16:15 | Emergency (ER) | payer OTHER ==
--- NOTE | 2018-07-05 17:05 | RAD REPORT ---
EXAM DESCRIPTION: CT - Head Brain Wo Cont - 07/05/2018 4:54 pm CLINICAL HISTORY: Dizziness, headache COMPARISON: December 2016 TECHNIQUE: Axial 5 mm thick images of the head were obtained without IV contrast. All CT scans are performed using dose optimization technique as appropriate and may include automated exposure control or mA/KV adjustment according to patient size. FINDINGS: No intracranial hemorrhage, mass, edema or shift of mid-line structures. No acute cortical based infarction. No cortical edema or sulcal effacement. No abnormal extra-axial fluid collections. Moderate atrophy is present along with very pronounced chronic ischemic change. Ventricles are in pr oportion. Intracranial findings are similar to comparison. Mastoid air cells and visualized portions of the paranasal sinuses are clear. No acute bony findings. IMPRESSION: Negative non-contrast CT head examination for acute finding. Moderate atrophy and very advanced chronic ischemic change similar to comparison.
--- NOTE | 2018-07-05 17:19 | RAD REPORT ---
EXAM DESCRIPTION: RAD - Chest Single View - 07/05/2018 5:04 pm CLINICAL HISTORY: Dyspnea COMPARISON: January 2018 TECHNIQUE: AP portable chest image was obtained 1700 hours . FINDINGS: Lungs are fibrotic as a baseline. No focal mass or consolidation. Lung markings are not [place] bstantially different from comparison. Severity of chronic disease could easily mask early interstiti al edema or infiltrate. Cardiomegaly is present stable from comparison. No acute vascular engorgement. No measurable pleural effusion and no pneumothorax. No acute bone finding. 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 No acute aortic findings suspected. IMPRESSION: Extensive chronic interstitial lung disease similar to comparison. This could potentiall y mask early interstitial edema or infiltrate. Stable cardiomegaly.
[2018-07-05] MEDS ORDERED: HYDRALAZINE HCL 20 MG/ML VIAL ONE (17:23)
[2018-07-05] MEDS ORDERED: ONDANSETRON 4 MG/2 ML VIAL ONE (17:23)
[2018-07-05 17:57] LABS: Absolute Lymphocytes (CBC) 0.4 K/uL (0.7-4.9); Absolute Monocytes 0.2 K/uL (0.1-1.3); Absolute Neutrophil 5.2 K/uL (1.8-8.0); Basophils % 0.5 % (0-1.3); Eosinophils % 0.1 % (0-4.4); Hematocrit 35.8 % (36.0-45.0); Lymphocytes % 7.3 % (15.3-44.8); MPV 8.1 fL (7.6-11.3); Monocytes % 3.8 % (3.3-12.3); Protime INR 1.24; RBC Red Blood Cell Count 4.15 M/uL (3.86-4.86)
[2018-07-05 18:24] LABS: ALT/SGPT 22 U/L (12-78); AST/SGOT 23 U/L (15-37); Albumin 3.5 g/dL (3.4-5.0); Alkaline Phosphatase 88 U/L (45-117); BUN Blood Urea Nitrogen 15 mg/dL (7-18); Bicarbonate 27 mmol/L (21-32); Bilirubin Direct 0.3 mg/dL (0-0.2); Bilirubin Total 0.8 mg/dL (0.2-1.0); Glucose Level 123 mg/dL (74-106); Lipase 70 U/L (73-393); Magnesium 2.2 mg/dL (1.8-2.4); NT PRO-BNP 4642 pg/mL (<450); Potassium 3.4 mmol/L (3.5-5.1); Protein, Total 7.4 g/dL (6.4-8.2); Sodium Level 137 mmol/L (136-145); Troponin (Emerg Dept Use Only) < 0.02 ng/mL (0.0-0.045)
[2018-07-05 18:35] LABS: Platelet Estimate ADEQ; Urine White Blood Cell Casts OK
[2018-07-05 18:36] LABS: Blood Morphology Comment NOT SEEN (NOT SEEN)
[2018-07-05] MEDS ORDERED: POTASSIUM CL SA 10 MEQ TAB PO ONE (19:09)
--- NOTE | 2018-07-05 19:17 | EDPHYS ---
Physician Documentation [facility] Name: Martine Iyer Age: 88 yrs Sex: Female : 1930 Arrival Date: 07/05/2018 Time: 16:17 Bed 15 Private MD: Branden Altamirano ED Physician Luciano Hudson HPI: 07/05 18:19 This 88 yrs old Female presents to ER via Wheelchair with complaints of jr8 Nausea, Diarrhea, Headache. 18:19 Onset: The symptoms/episode began/occurred acutely, today. Possible causes: unknown. jr8 The symptoms are aggravated by nothing. The symptoms are alleviated by nothing. Severity of symptoms: At their worst the symptoms were moderate. The patient has not experienced similar symptoms in the past. The patient has not recently seen a physician. Patient stated that she had sudden onset of nausea and diarrhea this morning. Since then has had headache and elevated blood pressure. Stated that BP is always elevated but not this bad. Denies abdominal pain . Historical: - Allergies: 16:34 Coumadin; hb - Home Meds: 16:34 acyclovir 400 mg Oral tab 1 tab 2 times per day [Active]; clonidine HCl 0.1 mg Oral tab hb 1 tab as needed for DBP greater than 90 [Active]; levothyroxine 137 mcg tab 1 tab once daily [Active]; Lipitor 20 mg Oral tab 1 tab once daily [Active]; losartan 100 mg Oral tab 1 tab once daily [Active]; Xanax 1 mg Oral tab 1 tab as needed [Active]; 16:25 Bystolic 15 mg Oral tab 1 tab twice daily [Active]; Eliquis 2.5 mg Oral tab 1 tab 2 rb1 times per day [Active]; - PMHx: 16:34 Arthritis; Atrial Fib; Hypertension; Hypothyroidism; skin ca; hb - PSHx: 16:34 Hysterectomy; bilateral knee replacement; shoulder surgery; bilateral cornea hb transplants; - Immunization history:: Adult Immunizations up to date. - Social history:: Smoking status: Patient/guardian denies using tobacco. - Ebola Screening: : Patient negative for fever greater than or equal to 101.5 degrees Fahrenheit, and additional compatible Ebola Virus Disease symptoms. ROS: 18:19 Eyes: Negative for injury, pain, redness, and discharge, ENT: Negative for injury, jr8 pain, and discharge, Neck: Negative for injury, pain, and swelling, Cardiovascular: Negative for chest pain, palpitations, and edema, Respiratory: Negative for shortness of breath, cough, wheezing, and pleuritic chest pain, Back: Negative for injury and pain, MS/Extremity: Negative for injury and deformity, Skin: Negative for injury, rash, and discoloration. 18:19 Abdomen/GI: Positive for nausea, diarrhea, Negative for abdominal pain, vomiting, abdominal cramps, abdominal distension, anorexia, dysphagia, hematemesis, black/tarry stool, rectal pain, rectal bleeding, bowel incontinence, flatulence. 18:19 Neuro: Positive for dizziness, headache, Negative for altered mental status, gait disturbance, loss of consciousness, numbness, seizure activity, speech changes, syncope, near syncope, tingling, tinnitus, tremor, visual changes, weakness. Exam: 18:19 Eyes: Pupils equal round and reactive to light, extra-ocular motions intact. Lids and jr8 lashes normal. Conjunctiva and sclera are non-icteric and not injected. Cornea within normal limits. Periorbital areas with no swelling, redness, or edema. ENT: Nares patent. No nasal discharge, no septal abnormalities noted. Tympanic membranes are normal and external auditory canals are clear. Oropharynx with no redness, swelling, or masses, exudates, or evidence of obstruction, uvula midline. Mucous membranes moist. Neck: Trachea midline, no thyromegaly or masses palpated, and no cervical lymphadenopathy. Supple, full range of motion without nuchal rigidity, or vertebral point tenderness. No Meningismus. Cardiovascular: Regular rate and rhythm with a normal S1 and S2. No gallops, murmurs, or rubs. Normal PMI, no JVD. No pulse deficits. Respiratory: Lungs have equal breath sounds bilaterally, clear to auscultation and percussion. No rales, rhonchi or wheezes noted. No increased work of breathing, no retractions or nasal flaring. Abdomen/GI: Soft, non-tender, with normal bowel sounds. No distension or tympany. No guarding or rebound. No evidence of tenderness throughout. Back: No spinal tenderness. No costovertebral tenderness. Full range of motion. Skin: Warm, dry with normal turgor. Normal color with no rashes, no lesions, and no evidence of cellulitis. MS/ Extremity: Pulses equal, no cyanosis. Neurovascular intact. Full, normal range of motion. Neuro: Awake and alert, GCS 15, oriented to person, place, time, and situation. Cranial nerves II-XII grossly intact. Motor strength 5/5 in all extremities. Sensory grossly intact. Cerebellar exam normal. Normal gait. 18:35 ECG was reviewed by the Attending Physician. 8 Vital Signs: 16:31 BP 207 / 120; Pulse 67; Resp 16; Temp 98.2; Pulse Ox 95% on R/A; Pain 5/10; hb 17:30 BP 207 / 135; Pulse 63; Resp 15; Pulse Ox 96% on R/A; rb1 18:30 BP 170 / 105; Pulse 60; Resp 16; Pulse Ox 97% on R/A; Pain 4/10; rb1 19:00 BP 198 / 94; Pulse 72; Resp 15; Pulse Ox 95% on R/A; rb1 19:30 BP 204 / 106; Pulse 68; Resp 19 S; Pulse Ox 96% on R/A; cc3 20:10 BP 199 / 95; Pulse 60; Resp 20 S; Pulse Ox 95% on R/A; cc3 20:30 BP 178 / 110; Pulse 70; Resp 20 S; Pulse Ox 95% on R/A; cc3 MDM: 16:33 Patient medically screened. [facility] 19:15 Data reviewed: vital signs, nurses notes, lab test result(s), EKG, radiologic studies, jr8 CT scan, plain films. Data interpreted: Pulse oximetry: on room air is 95 %. Interpretation: normal. Counseling: I had a detailed discussion with the patient and/or guardian regarding: the historical points, exam findings, and any diagnostic results supporting the discharge/admit diagnosis, lab results, radiology results, the need for outpatient follow up, a family practitioner, to return to the emergency department if symptoms worsen or persist or if there are any questions or concerns that arise at home. Response to treatment: the patient's symptoms have markedly improved after treatment. ED course: Reexamined patient. Still without abdominal pain or tenderness. Nausea improved. Headache improved. Otherwise no other acute or concerning findings on labs or exam. Will send home to f/u. Knows to come back if worse . 07/05 16:41 Order name: Basic Metabolic Panel; Complete Time: 18:33 jr8 03/28 16:41 Order name: CBC with Diff; Complete Time: 18:39 8 07/05 16:41 Order name: LFT's; Complete Time: 18:33 07/05 16:41 Order name: Magnesium; Complete Time: 18:33 07/05 16:41 Order name: NT PRO-BNP; Complete Time: 18:33 07/05 16:41 Order name: PT-INR; Complete Time: 18:14 07/05 16:41 Order name: Troponin (emerg Dept Use Only); Complete Time: 18:33 07/05 16:41 Order name: XRAY Chest (1 view); Complete Time: 17:30 07/05 16:41 Order name: Lipase; Complete Time: 18:33 07/05 16:41 Order name: CT Head Brain wo Cont; Complete Time: 17:13 07/05 17:58 Order name: CBC Smear Scan; Complete Time: 18:39 EDMS 07/05 16:41 Order name: EKG; Complete Time: 16:42 07/05 16:41 Order name: Cardiac monitoring; Complete Time: 17:47 07/05 16:41 Order name: EKG - Nurse/Tech; Complete Time: 17:47 07/05 16:41 Order name: IV Saline Lock; Complete Time: 17:46 07/05 16:41 Order name: Labs collected and sent; Complete Time: 17:46 07/05 16:41 Order name: O2 Per Protocol; Complete Time: 17:48 07/05 16:41 Order name: O2 Sat Monitoring; Complete Time: 17:48 EC:35 Rate is 60 beats/min. Rhythm is irregularly irregular, A fib. QRS [place] is Normal. QRS jr8 interval is normal at 98 msec. QT interval is normal at 452 msec. No Q waves. T waves are Normal. No ST changes noted. Clinical impression: Atrial Fibrillation and No evidence of ischemia. Interpreted by me. Reviewed by me. Administered Medications: 17:43 Drug: hydrALAZINE 10 mg Route: IV; Rate: calculated rate; Site: left antecubital; rb1 17:43 Drug: Zofran 4 mg Route: IVP; Site: left antecubital; rb1 19:00 Follow up: Response: No adverse reaction; Nausea is decreased cc3 19:02 Drug: Potassium Chloride 20 mEq Route: PO; rb1 19:30 Follow up: Response: No adverse reaction cc3 19:55 Drug: cloNIDine 0.1 mg Route: PO; cc3 20:30 Follow up: Response: No adverse reaction; Blood pressure is lowered cc3 Disposition: 07/06 07:23 Co-signature as Attending Physician, Luciano Hudson MD I agree with the assessment and kdr plan of care. Disposition: 07/05/18 19:16 Discharged to Home. Impression: Hypertensive Urgency, Diarrhea, unspecified. - Condition is Stable. - Discharge Instructions: Diarrhea, Adult. - Prescriptions for Cipro 500 mg Oral Tablet - take 1 tablet by ORAL route every 12 hours for 10 days; 20 tablet. Zofran 4 mg Oral Tablet - take 1 tablet by ORAL route every 12 hours As needed; 20 tablet. - Medication Reconciliation Form, Thank You Letter, Antibiotic Education, Prescription Opioid Use form. - Follow up: Branden Altamirano MD; When: 2 - 3 days; Reason: Recheck today's complaints, Continuance of care, Re-evaluation by your physician. - Problem is new. - Symptoms have improved. Signatures: Dispatcher [employer] EDMS Luciano Hudson MD MD [facility] Kofi Stuart PA PA jr8 Jen Dozier, RN RN [facility] Carrie Sutherland RN RN Leslye Espinoza cc3 Corrections: (The following items were deleted from the chart) 07/05 17:05 16:34 Home Meds: Bystolic 15 mg Oral tab 1 tab twice daily; rb1 17:05 16:34 Home Meds: Eliquis 2.5 mg Oral tab 1 tab daily; rb1 20:51 19:16 07/05/2018 19:16 Discharged to Home. Impression: Hypertensive Urgency; Diarrhea, cc3 unspecified. Condition is Stable. Forms are Medication Reconciliation Form, Thank You Letter, Antibiotic Education, Prescription Opioid Use. Follow up: Branden Altamirano; When: 2 - 3 days; Reason: Recheck today's complaints, Continuance of care, Re-evaluation by your physician. Problem is new. Symptoms have improved. jr8
--- NOTE | 2018-07-05 19:17 | ER ---
Nurse's Notes [facility] Name: Martine Iyer Age: 88 yrs Sex: Female : 1930 Arrival Date: 07/05/2018 Time: 16:17 Bed 15 Private MD: Branden Altamirano Diagnosis: Hypertensive Urgency;Diarrhea, unspecified Presentation: 07/05 16:25 Initial Sepsis Screen: Does the patient meet any 2 criteria? No. Patient's initial rb1 sepsis screen is negative. Does the patient have a suspected source of infection? No. Patient's initial sepsis screen is negative. 16:30 Presenting complaint: Dizziness x 3 days, throbbing headache and N/D since this hb morning. Transition of care: patient was not received from another setting of care. Onset of symptoms was July 04, 2018. Risk Assessment: Do you want to hurt yourself or someone else? Patient reports no desire to harm self or others. Care prior to arrival: None. 16:30 Acuity: KEAGAN 2 hb 16:30 Method Of Arrival: Wheelchair hb Historical: - Allergies: 16:34 Coumadin; hb - Home Meds: 16:34 acyclovir 400 mg Oral tab 1 tab 2 times per day [Active]; clonidine HCl 0.1 mg Oral tab hb 1 tab as needed for DBP greater than 90 [Active]; levothyroxine 137 mcg tab 1 tab once daily [Active]; Lipitor 20 mg Oral tab 1 tab once daily [Active]; losartan 100 mg Oral tab 1 tab once daily [Active]; Xanax 1 mg Oral tab 1 tab as needed [Active]; 16:25 Bystolic 15 mg Oral tab 1 tab twice daily [Active]; Eliquis 2.5 mg Oral tab 1 tab 2 rb1 times per day [Active]; - PMHx: 16:34 Arthritis; Atrial Fib; Hypertension; Hypothyroidism; skin ca; hb - PSHx: 16:34 Hysterectomy; bilateral knee replacement; shoulder surgery; bilateral cornea hb transplants; - Immunization history:: Adult Immunizations up to date. - Social history:: Smoking status: Patient/guardian denies using tobacco. - Ebola Screening: : Patient negative for fever greater than or equal to 101.5 degrees Fahrenheit, and additional compatible Ebola Virus Disease symptoms. Screenin:25 Abuse screen: Denies threats or abuse. Nutritional screening: No deficits noted. rb1 Tuberculosis screening: No symptoms or risk factors identified. 16:25 Fall Risk None identified. rb1 Assessment: 16:25 General: Appears in no apparent distress. comfortable, slender, Behavior is calm, rb1 cooperative, Denies fever, chills. Pain: Complains of pain in head Pain currently is 7 out of 10 on a pain scale. Neuro: Level of Consciousness is awake, alert, obeys commands, Oriented to person, place, time, situation, Reports dizziness, headache. Cardiovascular: Capillary refill < 3 seconds is brisk in bilateral fingers. Respiratory: Airway is patent Respiratory effort is even, unlabored, Respiratory pattern is regular, symmetrical. GI: Abdomen is flat, Reports diarrhea, nausea. : No signs and/or symptoms were reported regarding the genitourinary system. 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 Derm: Skin is pink, warm \T\ dry. 16:45 Reassessment: Pt. went CT. rb1 17:25 Reassessment: Patient appears in no apparent distress at this time. No changes from rb1 previously documented assessment. Family at bedside. 18:25 Reassessment: Patient appears in no apparent distress at this time. Patient and/or rb1 family updated on plan of care and expected duration. Pain level reassessed. Patient is alert, oriented x 3, equal unlabored respirations, skin warm/dry/pink. Family at bedside. 18:42 Reassessment: Provider at bedside. rb1 19:30 Reassessment: Patient appears in no apparent distress at this time. Patient and/or cc3 family updated on plan of care and expected duration. Pain level reassessed. Patient is alert, oriented x 3, equal unlabored respirations, skin warm/dry/pink. Received this female patient from morning shift MILADY Li as a case of diarrhea, headache and high blood pressure. With IV cannula gauge 22 at the left forearm saline locked. Blood pressure is still high and patient complaining of headache, informed BACILIO Stuart and ordered for Clonidine oral and said to send the patient for discharge home later once blood pressure is stabilized, charge nurse Catina informed. 20:30 Reassessment: Patient appears in no apparent distress at this time. Patient and/or cc3 family updated on plan of care and expected duration. Pain level reassessed. Patient is alert, oriented x 3, equal unlabored respirations, skin warm/dry/pink. Patient's blood pressure is improved as charted, patient discharged home with prescription given. IV cannula removed and patient left ER vitally stable by wheelchair escorted by me and the patient's daughters. Vital Signs: 16:31 BP 207 / 120; Pulse 67; Resp 16; Temp 98.2; Pulse Ox 95% on R/A; Pain 5/10; hb 17:30 BP 207 / 135; Pulse 63; Resp 15; Pulse Ox 96% on R/A; rb1 18:30 BP 170 / 105; Pulse 60; Resp 16; Pulse Ox 97% on R/A; Pain 4/10; rb1 19:00 BP 198 / 94; Pulse 72; Resp 15; Pulse Ox 95% on R/A; rb1 19:30 BP 204 / 106; Pulse 68; Resp 19 S; Pulse Ox 96% on R/A; cc3 20:10 BP 199 / 95; Pulse 60; Resp 20 S; Pulse Ox 95% on R/A; cc3 20:30 BP 178 / 110; Pulse 70; Resp 20 S; Pulse Ox 95% on R/A; cc3 ED Course: 16:17 Patient arrived in ED. ds1 16:18 Branden Altamirano MD is Private Physician. ds1 16:25 Patient has correct armband on for positive identification. Bed in low position. Call rb1 light in reach. Side rails up X 1. Pulse ox on. NIBP on. Warm blanket given. Pillow given. 16:28 [facility]of[facility]. jr8 16:28 Luciano Hudson MD is Attending Physician. jr8 16:31 Triage completed. hb 16:31 Arm band placed on. hb 16:[address] jg6 16:46 Jen Dozier, RN is Primary Nurse. rb1 16:50 EKG done, by biological science technician fish. reviewed by Kofi RIBERA. sm3 16:53 CT completed. Patient tolerated procedure well. Patient moved back from CT. nj 16:54 CT Head Brain wo Cont In Process Unspecified. EDMS 17:01 XRAY Chest (1 view) In Process Unspecified. EDMS 17:10 Missed attempt(s): 22 gauge in right antecubital area. rb1 17:44 Initial lab(s) drawn, by ri, sent to lab. Inserted saline lock: 22 gauge in left 5 forearm, using aseptic technique. Blood collected. 17:45 Lipase Sent. mh5 17:45 Basic Metabolic Panel Sent. 5 17:45 CBC with Diff Sent. 5 17:45 LFT's Sent. 5 17:45 Magnesium Sent. 5 17:45 NT PRO-BNP Sent. 5 17:45 PT-INR Sent. 5 17:46 Troponin (emerg Dept Use Only) Sent. 5 19:00 Report given to MILADY Gavin. rb1 19:16 Branden Altamirano MD is Referral Physician. jr8 20:40 No provider procedures requiring assistance completed. IV discontinued, intact, cc3 bleeding controlled, No redness/swelling at site. Pressure dressing applied. Administered Medications: 17:43 Drug: hydrALAZINE 10 mg Route: IV; Rate: calculated rate; Site: left antecubital; rb1 17:43 Drug: Zofran 4 mg Route: IVP; Site: left antecubital; rb1 19:00 Follow up: Response: No adverse reaction; Nausea is decreased cc3 19:02 Drug: Potassium Chloride 20 mEq Route: PO; rb1 19:30 Follow up: Response: No adverse reaction cc3 19:55 Drug: cloNIDine 0.1 mg Route: PO; cc3 20:30 Follow up: Response: No adverse reaction; Blood pressure is lowered cc3 Outcome: 19:16 Discharge ordered by MD. jr8 20:40 Discharged to home via wheelchair, with family. cc3 20:40 Condition: stable 20:40 Discharge instructions given to patient, family, Instructed on discharge instructions, follow up and referral plans. medication usage, Demonstrated understanding of instructions, follow-up care, medications, Prescriptions given X 2. 20:51 Patient left the ED. cc3 Signatures: Dispatcher [employer] EDSD Mary Sanchez Josh, PA PA jr8 Jen Dozier RN RN rb1 Carrie Sutherland RN RN Cory Estrada Maria 5 Lu Gutierrez 3 Leslye Espinoza 3 Edna Lariosg6 Corrections: (The following items were deleted from the chart) 17:05 16:34 Home Meds: Bystolic 15 mg Oral tab 1 tab twice daily; hb rb1 17:05 16:34 Home Meds: Eliquis 2.5 mg Oral tab 1 tab daily; rb1 23:08 19:15 Reassessment: Patient appears in no apparent distress at this time. Patient cc3 and/or family updated on plan of care and expected duration. Pain level reassessed. Patient is alert, oriented x 3, equal unlabored respirations, skin warm/dry/pink. Received this female patient from morning shift MILADY Li as a case of diarrhea, headache and high blood pressure. With IV cannula gauge 22 at the left forearm saline locked cc3
[2018-07-05] MEDS ORDERED: cloNIDine HCl 0.1 MG TAB ONE (20:03)
[2018-07-05 21:14] VITALS: TEMP 98.2
[2018-07-05 21:20] VITALS: O2SAT 95
[2018-07-05 21:21] VITALS: BP 178/110
--- NOTE | 2018-07-06 06:13 | EKG ---
Test Date: 2018-07-05 Test Time: 16:41:32 Weight Engineer: ALAN MEASUREMENT RESULTS: Intervals: Rate: 60 NM: QRSD: 98 QT: 452 QTc: 452 [place]: P: NM: QRS: 82 T: 0 INTERPRETIVE STATEMENTS: Atrial fibrillation Nonspecific ST and T wave abnormality, probably digitalis effect Abnormal ECG Compared to ECG 01/13/2018 17:39:59 No significant changes Electronically Signed On 07-06-18 06:12:48 CDT by Blaze Cruz
== END 2018-07-05 20:51 | disposition home or self-care (01) ==
LOC: ER 16:15
DX: I16.0 Hypertensive urgency (principal); R19.7 Diarrhea, unspecified; I10 Essential (primary) hypertension; I48.91 Unspecified atrial fibrillation; E03.9 Hypothyroidism, unspecified; C44.90 Unspecified malignant neoplasm of skin, unspecified; Z79.01 Long term (current) use of anticoagulants; Z88.8 Allergy status to other drugs, medicaments and biological substances
CPT/HCPCS: 93005; 85025; 80048; 36415; 83735; 85610; 80076; 84484; 83690; 83880; 70450; 71045; 96375; 96374; 99285; J0360; J2405

== ENCOUNTER 2018-10-24 18:06 | Emergency (ER) | payer OTHER ==
--- NOTE | 2018-10-24 18:43 | RAD REPORT ---
EXAM DESCRIPTION: CT - CTHCSPWOC - 10/24/2018 6:32 pm CLINICAL HISTORY: Trauma, head and neck injury. fall, r/o trauma COMPARISON: No comparisons TECHNIQUE: Axial 5 mm thick images of the head were obtained. Axial 2 mm thick images of the cervical spine were obtained with sagittal and coronal reconstruction images generated and reviewed. All CT scans are performed using dose optimization technique as appropriate and may include automated exposure control or mA/KV adjustment according to patient size. FINDINGS: CT HEAD WITHOUT CONTRAST: No acute hemorrhage, hydrocephalus or extra-axial collection is identified.Advanced generalized brain atrophy is present with advanced periventricular and deep white matter chronic microvascular ischemi c changes.No areas of brain edema or midline shift. The paranasal sinuses and mastoids are clear.The calvarium is intact. CT CERVICAL SPINE WITHOUT CONTRAST: No fracture or subluxation.No prevertebral soft tissues swelling is identified. IMPRESSION: No acute intracranial or cervical spine findings.
--- NOTE | 2018-10-24 18:45 | RAD REPORT ---
EXAM DESCRIPTION: CT - Pelvis Wo Cont - 10/24/2018 6:33 pm CLINICAL HISTORY: fall, r/o trauma Pelvic pain after fall, trauma COMPARISON: <Comparisons> TECHNIQUE: All CT scans are performed using dose optimization technique as appropriate and may inclu de automated exposure control or mA/KV adjustment according to patient size. FINDINGS: Mildly displaced fracture is seen involving the the superior pubic ramus anteriorly and in ferior pubic ramus mid aspect on the left. The left hip appears intact. Bones are quite demineralized . Sacral ala are intact. Moderate lumbar degenerative changes. Prominent sigmoid diverticulosis is pr esent without diverticulitis. A mild hematoma is seen in the inferior anterior left pelvis. IMPRESSION: Acute mildly displaced fractures of the inferior and superior pubic rami on the left.
[2018-10-24] MEDS ORDERED: HYDROCODONE/APAP 5/325 MG TAB ONE (18:48)
[2018-10-24 19:47] LABS: Absolute Lymphocytes (CBC) 0.6 K/uL (0.7-4.9); Basophils % 0.6 % (0-1.3); Eosinophils % 1.1 % (0-4.4); Lymphocytes % 10.4 % (15.3-44.8); MPV 8.8 fL (7.6-11.3); Monocytes % 7.6 % (3.3-12.3); RBC Red Blood Cell Count 4.34 M/uL (3.86-4.86)
--- NOTE | 2018-10-24 20:47 | RAD REPORT ---
EXAM DESCRIPTION: CT - Pelvis W/Cont - 10/24/2018 8:36 pm CLINICAL HISTORY: BLUNT TRAUMA Trauma, pelvic pain COMPARISON: Pelvis Wo Cont dated 10/24/2018 TECHNIQUE: All CT scans are performed using dose optimization technique as appropriate and may inclu de automated exposure control or mA/KV adjustment according to patient size. FINDINGS: Fracture of the superior pubic ramus anteriorly is again seen. Mildly displaced fracture o f the inferior pubic ramus on the left also present. Focal area of hematoma is seen in the inferior l eft hemipelvis measuring 5.0 x 4.0 cm. A small blush of contrast is seen within this hematoma. Mild h ematoma is also seen anterior to the left acetabulum measuring 4.2 x 2.6 cm. No evidence of a contras t blush within this hematoma. Sigmoid diverticulosis is present. Aortic atherosclerosis is evident. Moderate lumbar degenerative ch anges are seen. Mild anterolisthesis is present of L4 on 5 with vacuum disc degeneration noted. The l eft hip appears intact. IMPRESSION: Fracture of the superior and inferior pubic ramus on the left noted as detailed. Hematoma is seen in the inferior left hemipelvis with a small contrast blush noted likely indicating a small amount of active bleeding in the region.
[2018-10-24] MEDS ORDERED: FENTANYL CITR 100 MCG/2 ML ONE (21:15)
--- NOTE | 2018-10-24 21:33 | ER ---
Nurse's Notes [facility] Name: Martine Iyer Age: 88 yrs Sex: Female : 1930 Arrival Date: 10/24/2018 Time: 18:08 Bed 6 Private MD: Diagnosis: Mildly displaced pubic rami fractures to left with mildly active bleeding and hematoma to left hemipelvis;Fall on same level, unspecified Presentation: 10/24 18:09 Presenting complaint: EMS states: Pt was standing up from chair after eating, reports ph that it felt as if something was pulling her backwards, fell and hit back of head, denies LOC, reports taking blood thinners, c/o L hip pain, BP elevated w/ systolic in 200s, pt did recently take home BP medication. Care prior to arrival: Glucose check: 147. Mechanism of Injury: Fall from standing position. Trauma event details: Injury occurred in the [facility], Injury occurred: at home. Injury occurred: October 24, 2018. 18:09 Acuity: KEAGAN 2 ph 18:09 Method Of Arrival: EMS: [facility] ph 18:17 Transition of care: patient was not received from another setting of care. Onset of ph symptoms was October 24, 2018. Risk Assessment: Do you want to hurt yourself or someone else? Patient reports no desire to harm self or others. Initial Sepsis Screen: Does the patient meet any 2 criteria? No. Patient's initial sepsis screen is negative. Does the patient have a suspected source of infection? No. Patient's initial sepsis screen is negative. Trauma Activation: Alert Physician: ED Physician; Name: ; Notified At: ; Arrived At: Physician: General Surgeon; Name: ; Notified At: ; Arrived At: Physician: Radiology; Name: ; Notified At: ; Arrived At: Physician: Respiratory; Name: ; Notified At: ; Arrived At: Physician: Lab; Name: ; Notified At: ; Arrived At: Historical: - Allergies: 18:14 Coumadin; ph 18:54 Zofran; ph - Home Meds: 18:14 acyclovir 400 mg Oral tab 1 tab 2 times per day [Active]; Bystolic 15 mg Oral tab 1 tab ph twice daily [Active]; clonidine HCl 0.1 mg Oral tab 1 tab as needed for DBP greater than 90 [Active]; Eliquis 2.5 mg Oral tab 1 tab 2 times per day [Active]; levothyroxine 137 mcg tab 1 tab once daily [Active]; Lipitor 20 mg Oral tab 1 tab once daily [Active]; losartan 100 mg Oral tab 1 tab once daily [Active]; Xanax 1 mg Oral tab 1 tab as needed [Active]; - PMHx: 18:14 Arthritis; Atrial Fib; Hypertension; Hypothyroidism; skin ca; ph - PSHx: 18:14 Hysterectomy; bilateral knee replacement; shoulder surgery; bilateral cornea ph transplants; - Immunization history: Last tetanus immunization: unknown. - Social history:: Smoking status: Patient/guardian denies using tobacco. - Ebola Screening: : No symptoms or risks identified at this time. Screenin:14 Abuse screen: Denies threats or abuse. Denies injuries from another. Nutritional ph screening: No deficits noted. Tuberculosis screening: No symptoms or risk factors identified. Fall Risk Fall in past 12 months (25 points). No secondary diagnosis (0 pts). IV access (20 points). Ambulatory Aid- Crutches/Cane/Walker (15 pts). Gait- Normal/Bed Rest/Wheelchair (0 pts) Mental Status- Oriented to own ability (0 pts). Total [place] Fall Scale indicates Low Risk Score (25-44 pts). Fall prevention measures have been instituted. Side Rails Up X 2 Placed close to Nursing Station Frequent Obs/Assesments occuring Family Present and informed to notify staff if they need to leave bedside As available Patient and Family Educated on Fall Prevention Program and strategies. Primary Survey: 18:15 NO uncontrolled hemorrhage observed. A: The patient is alert. Airway: patent, No ph supplemental oxygen in use on arrival. Oral cavity: clear, Trachea midline. Breathing/Chest: Respiratory pattern: regular, Respiratory effort: spontaneous, unlabored, Chest inspection: symmetrical rise and fall of the chest. Circulation: Pulses: palpable right dorsalis pedis artery and left dorsalis pedis artery. Skin color: pink, Skin temperature: warm, dry. Disability Alert. Exposure/Environment: There is no evidence of uncontrolled external bleeding. No obvious injuries are noted at this time. 19:15 Reassessment Airway Airway Patent Breathing/Chest Respiratory pattern Regular rr5 Respiratory effort Spontaneous Unlabored Breath sounds Clear Chest inspection Symmetrical Circulation Heart tones Present Pulses Palpable Disability Alert. Secondary Survey: 19:15 HEENT: No deficits noted. Gastrointestinal: Abdomen is soft, flat. : No signs and/or rr5 symptoms were reported regarding the genitourinary system. Musculoskeletal: Circulation, motion, and sensation intact. Capillary refill < 3 seconds, Range of motion: limited in left hip. Assessment: 18:20 General: Appears in no apparent distress. comfortable, slender, well groomed, Behavior ph is calm, cooperative, appropriate for age. Pain: Complains of pain in left hip. Neuro: Level of Consciousness is awake, alert, obeys commands, Oriented to person, place, time, situation. Cardiovascular: Capillary refill < 3 seconds in bilateral fingers Patient's skin is warm and dry. Respiratory: Airway is patent Respiratory effort is even, unlabored, Respiratory pattern is regular, symmetrical. GI: Abdomen is flat, Patient currently denies abdominal pain, nausea, vomiting. Derm: Skin is intact, is healthy with good turgor, Skin is pink, warm \T\ dry. Musculoskeletal: Circulation, motion, and sensation intact. Range of motion: intact in all extremities. 19:05 General: Appears in no apparent distress. comfortable, well groomed, Behavior is calm, rr5 cooperative, appropriate for age. Pain: Denies pain. 19:05 Neuro: Level of Consciousness is awake, alert, obeys commands, Oriented to person, rr5 place, time, situation. Cardiovascular: Capillary refill < 3 seconds Patient's skin is warm and dry. Respiratory: Airway is patent Respiratory effort is even, unlabored, Respiratory pattern is regular, symmetrical. GI: Abdomen is flat, Patient currently denies abdominal pain. : No signs and/or symptoms were reported regarding the genitourinary system. EENT: No signs and/or symptoms were reported regarding the EENT system. Derm: Skin is intact, is healthy with good turgor, Skin is pink, warm \T\ dry. Musculoskeletal: Circulation, motion, and sensation intact. Capillary refill < 3 seconds, Range of motion: limited in left hip contractured bilateral hands. 20:30 Reassessment: Patient appears in no apparent distress at this time. Patient is alert, rr5 oriented x 3, equal unlabored respirations, skin warm/dry/pink. send for CT scan. 21:04 Reassessment: Patient appears in no apparent distress at this time. Patient is alert, rr5 oriented x 3, equal unlabored respirations, skin warm/dry/pink. ED provider review the result. for transfer to other facility. 22:00 Reassessment: Patient appears in no apparent distress at this time. Patient is alert, rr5 oriented x 3, equal unlabored respirations, skin warm/dry/pink. 22:17 Reassessment: Report called to Ginette HENNING at [facility]. ea 23:15 Reassessment: Patient appears in no apparent distress at this time. complaining of rr5 pelvic pain left. ED provider informed with order made and carried out. Reassessment: Patient appears in no apparent distress at this time. Patient is alert, oriented x 3, equal unlabored respirations, skin warm/dry/pink. endorsed to [facility] awake breathing spontaneously at room air. latest BP 186/ 114 mmHg. kept left leg immobilized. Vital Signs: 18:11 BP 206 / 109; Pulse 54; Resp 18; Temp 98.1; Pulse Ox 95% on R/A; Weight 52.16 kg; ph Height 5 ft. 3 in. (160.02 cm); 18:59 BP 214 / 106; Pulse 59; Resp 18; Pulse Ox 98% on R/A; ph 19:20 BP 149 / 75; Pulse 66; Resp 16; Temp 98.7; Pulse Ox 99% on R/A; Pain 0/10; rr5 20:20 BP 161 / 93; Pulse 62; Resp 18; Pulse Ox 99% ; rr5 21:30 BP 177 / 92; Pulse 62; Resp 17; Pulse Ox 97% ; rr5 22:00 BP 191 / 91; Pulse 70; Resp 19; Pulse Ox 99% ; rr5 22:30 BP 187 / 113; Pulse 64; Resp 16; Pulse Ox 97% ; rr5 22:54 BP 192 / 106; Pulse 70; Resp 18; Pulse Ox 96% on R/A; ea 23:00 BP 203 / 105; Pulse 75; Resp 17; Temp 98.5; Pulse Ox 99% on R/A; Pain 8/10; rr5 23:15 BP 186 / 114; Pulse 70; Resp 17; Pulse Ox 99% on R/A; rr5 18:11 Body Mass Index 20.37 (52.16 kg, 160.02 cm) ph Nuris Coma Score: 18:11 Eye Response: spontaneous(4). Verbal Response: oriented(5). Motor Response: obeys ph commands(6). Total: 15. 18:59 Eye Response: spontaneous(4). Verbal Response: oriented(5). Motor Response: obeys ph commands(6). Total: 15. Trauma Score (Adult): 18:11 Eye Response: spontaneous(1); Verbal Response: oriented(1); Motor Response: obeys ph commands(2); Systolic BP: > 89 mm Hg(4); Respiratory Rate: 10 to 29 per min(4); Franklin Score: 15; Trauma Score: 12 18:59 Eye Response: spontaneous(1); Verbal Response: oriented(1); Motor Response: obeys ph commands(2); Systolic BP: > 89 mm Hg(4); Respiratory Rate: 10 to 29 per min(4); Franklin Score: 15; Trauma Score: 12 ED Course: 18:08 Patient arrived in ED. ph 18:10 Ubaldo Vasquez PA is PHCP[facility] 18:10 Qamar eHrnandez MD is Attending Physician. [facility] 18:11 PHCP role handed off by Ubaldo Vasquez PA [facility] 18:11 Amita Rutherford FNP-C is PHCP. [facility] 18:11 Triage completed. ph 18:17 Patient maintains SpO2 saturation greater than 95% on room air. Thermoregulation: warm ph blanket given to patient. 18:17 Patient has correct armband on for positive identification. Placed in gown. Bed in low ph position. Call light in reach. Side rails up X2. Pulse ox on. NIBP on. 18:20 Arm band placed on. ph 18:23 Aliza Spain, RN is Primary Nurse. ph 18:34 Head C Spine Mpr Wo Con In Process Unspecified. EDMS 18:34 Pelvis Wo Cont In Process Unspecified. EDMS 19:25 Inserted saline lock: 20 gauge in left forearm, using aseptic technique. Blood rr5 collected. 19:35 Radiology exam delayed due to lab results not completed at this time. (BUN/Creatinine) vm2 IV insertion attempt and/or patient not having appropriate IV at this time. 20:[address] via stretcher. nj 20:36 CT completed. Patient tolerated procedure well. Patient moved back from CT. nj 20:37 CT Pelvis w cont In Process Unspecified. EDMS 21:10 Bui cath inserted, using sterile technique, 16 Fr., by me, balloon inflated, to ea gravity drainage, urine specimen collected. 23:10 No provider procedures requiring assistance completed. Patient transferred, IV remains rr5 in place. intact, No redness/swelling at site. Administered Medications: 19:15 Not Given (Patient Refused): Lilly 5 mg-325 mg 1 tabs PO once ph 21:10 Drug: fentaNYL (PF) 25 mcg Route: IVP; Site: left antecubital; ea 22:10 Follow up: Response: No adverse reaction rr5 22:30 Drug: fentaNYL (PF) 25 mcg Route: IVP; Site: right antecubital; ea 23:30 Follow up: Response: No adverse reaction rr5 23:03 Drug: fentaNYL (PF) 25 mcg Route: IVP; Site: left forearm; rr5 23:30 Follow up: Response: Other; given upon transfer rr5 23:05 Drug: hydrALAZINE 5 mg Route: IV; Rate: calculated rate; Site: left forearm; rr5 23:30 Follow up: Response: Other; IV Status: Completed infusion; given upon transfer rr5 Intake: 18:11 PO: 0ml; Total: 0ml. ph 18:59 PO: 0ml; Total: 0ml. ph Output: 18:11 Urine: 0ml; Total: 0ml. ph 18:59 Urine: 0ml; Total: 0ml. ph Outcome: 21:31 ER care complete, transfer ordered by MD. snw 22:50 Instructed on the need for transfer. rr5 23:15 Instructed on Demonstrated understanding of instructions. rr5 23:30 Transferred by ground EMS to [facility], Transfer form completed. rr5 23:30 Condition: stable rr5 23:[address] result and accepting facility.Patient's length of stay extended due to 23:31 Patient left the ED. rr5 Signatures: Dispatcher [employer] EDMS Amita Rutherford, AMPARO-C SHREDDED FILLER MACHINE WRAPPER LAYER-Csnw Ubaldo Vasquez PA PA jmm Hall, Patricia, RN RN Cory Marcos [facility] Nagel, Piper, RN RN ea Roca, Mickey, RN RN rr5
--- NOTE | 2018-10-24 21:33 | EDPHYS ---
Physician Documentation [facility] Name: Martine Iyer Age: 88 yrs Sex: Female : 1930 Arrival Date: 10/24/2018 Time: 18:08 Bed 6 Private MD: ED Physician Qamar Hernandez HPI: 10/24 18:22 This 88 yrs old Female presents to ER via EMS with complaints of Fall Injury. snw 18:22 Details of fall: The patient fell from an upright position, while standing. Onset: The snw symptoms/episode began/occurred suddenly, just prior to arrival. Associated injuries: The patient sustained left side of the back of head and left pelvis, painful injury. Severity of symptoms: At their worst the symptoms were moderate. The patient has experienced similar episodes in the past. The patient has not recently seen a physician. Historical: - Allergies: 18:14 Coumadin; ph 18:54 Zofran; ph - Home Meds: 18:14 acyclovir 400 mg Oral tab 1 tab 2 times per day [Active]; Bystolic 15 mg Oral tab 1 tab ph twice daily [Active]; clonidine HCl 0.1 mg Oral tab 1 tab as needed for DBP greater than 90 [Active]; Eliquis 2.5 mg Oral tab 1 tab 2 times per day [Active]; levothyroxine 137 mcg tab 1 tab once daily [Active]; Lipitor 20 mg Oral tab 1 tab once daily [Active]; losartan 100 mg Oral tab 1 tab once daily [Active]; Xanax 1 mg Oral tab 1 tab as needed [Active]; - PMHx: 18:14 Arthritis; Atrial Fib; Hypertension; Hypothyroidism; skin ca; ph - PSHx: 18:14 Hysterectomy; bilateral knee replacement; shoulder surgery; bilateral cornea ph transplants; - Immunization history: Last tetanus immunization: unknown. - Social history:: Smoking status: Patient/guardian denies using tobacco. - Ebola Screening: : No symptoms or risks identified at this time. ROS: 18:21 Constitutional: Negative for fever, chills, and weight loss, ENT: Negative for injury, snw pain, and discharge, Neck: Negative for injury, pain, and swelling, Cardiovascular: Negative for chest pain, palpitations, and edema, Respiratory: Negative for shortness of breath, cough, wheezing, and pleuritic chest pain, Abdomen/GI: Negative for abdominal pain, nausea, vomiting, diarrhea, and constipation, Back: Negative for injury and pain, : Negative for injury, bleeding, discharge, and swelling, Skin: Negative for injury, rash, and discoloration, Neuro: Negative for headache, weakness, numbness, tingling, and seizure, Psych: Negative for depression, anxiety, suicide ideation, homicidal ideation, and hallucinations. 18:21 MS/extremity: Positive for injury or acute deformity, pain, tenderness, of the left femoral area. Exam: 18:19 Constitutional: This is a well developed, well nourished patient who is awake, alert, snw and in no acute distress. Head/Face: Normocephalic, atraumatic. 18:19 Eyes: Pupils equal round and reactive to light, extra-ocular motions intact. Lids and lashes normal. Conjunctiva and sclera are non-icteric and not injected. Cornea within normal limits. Periorbital areas with no swelling, redness, or edema. ENT: Nares patent. No nasal discharge, no septal abnormalities noted. Tympanic membranes are normal and external auditory canals are clear. Oropharynx with no redness, swelling, or masses, exudates, or evidence of obstruction, uvula midline. Mucous membranes moist. Neck: Trachea midline, no thyromegaly or masses palpated, and no cervical lymphadenopathy. Supple, full range of motion without nuchal rigidity, or vertebral point tenderness. No Meningismus. Chest/axilla: Normal chest wall appearance and motion. Nontender with no deformity. No lesions are appreciated. Cardiovascular: Regular rate and rhythm with a normal S1 and S2. No gallops, murmurs, or rubs. Normal PMI, no JVD. No pulse deficits. Respiratory: Lungs have equal breath sounds bilaterally, clear to auscultation and percussion. No rales, rhonchi or wheezes noted. No increased work of breathing, no retractions or nasal flaring. Abdomen/GI: Soft, non-tender, with normal bowel sounds. No distension or tympany. No guarding or rebound. No evidence of tenderness throughout. Back: No spinal tenderness. No costovertebral tenderness. Full range of motion. Skin: Warm, dry with normal turgor. Normal color with no rashes, no lesions, and no evidence of cellulitis. Neuro: Awake and alert, GCS 15, oriented to person, place, time, and situation. Cranial nerves II-XII grossly intact. Motor strength 5/5 in all extremities. Sensory grossly intact. Cerebellar exam normal. Normal gait. Psych: Awake, alert, with orientation to person, place and time. Behavior, mood, and affect are within normal limits. 18:19 Eyes: Extraocular movements: left eyelid more constricted than right. 18:19 Musculoskeletal/extremity: Extremities: all appear grossly normal, with no appreciated pain with palpation, ROM: pain with active motion to left groin, Circulation is intact in all extremities. Sensation intact. Vital Signs: 18:11 BP 206 / 109; Pulse 54; Resp 18; Temp 98.1; Pulse Ox 95% on R/A; Weight 52.16 kg; ph Height 5 ft. 3 in. (160.02 cm); 18:59 BP 214 / 106; Pulse 59; Resp 18; Pulse Ox 98% on R/A; ph 19:20 BP 149 / 75; Pulse 66; Resp 16; Temp 98.7; Pulse Ox 99% on R/A; Pain 0/10; rr5 20:20 BP 161 / 93; Pulse 62; Resp 18; Pulse Ox 99% ; rr5 21:30 BP 177 / 92; Pulse 62; Resp 17; Pulse Ox 97% ; rr5 22:00 BP 191 / 91; Pulse 70; Resp 19; Pulse Ox 99% ; rr5 22:30 BP 187 / 113; Pulse 64; Resp 16; Pulse Ox 97% ; rr5 22:54 BP 192 / 106; Pulse 70; Resp 18; Pulse Ox 96% on R/A; ea 23:00 BP 203 / 105; Pulse 75; Resp 17; Temp 98.5; Pulse Ox 99% on R/A; Pain 8/10; rr5 23:15 BP 186 / 114; Pulse 70; Resp 17; Pulse Ox 99% on R/A; rr5 18:11 Body Mass Index 20.37 (52.16 kg, 160.02 cm) ph Nuris Coma Score: 18:11 Eye Response: spontaneous(4). Verbal Response: oriented(5). Motor Response: obeys ph commands(6). Total: 15. 18:59 Eye Response: spontaneous(4). Verbal Response: oriented(5). Motor Response: obeys ph commands(6). Total: 15. Trauma Score (Adult): 18:11 Eye Response: spontaneous(1); Verbal Response: oriented(1); Motor Response: obeys ph commands(2); Systolic BP: > 89 mm Hg(4); Respiratory Rate: 10 to 29 per min(4); [place] Score: 15; Trauma Score: 12 18:59 Eye Response: spontaneous(1); Verbal Response: oriented(1); Motor Response: obeys ph commands(2); Systolic BP: > 89 mm Hg(4); Respiratory Rate: 10 to 29 per min(4); [place] Score: 15; Trauma Score: 12 MDM: 18:14 Patient medically screened. snw 21:09 Data reviewed: vital signs, nurses notes. Data interpreted: Pulse oximetry: on room air snw is 99 %. Interpretation: normal. Counseling: I had a detailed discussion with the patient and/or guardian regarding: the historical points, exam findings, and any diagnostic results supporting the discharge/admit diagnosis, lab results, radiology results, as pt is on Eliquis and there is some mild pelvic hematoma with mild active bleeding, will attempt transfer to [place]. 21:29 Response to treatment: the patient's symptoms have mildly improved after treatment. snw Physician consultation: Dr. Gabriela Ace was called at 21:29, was contacted at 21:29, regarding regarding transfer, to [facility]. Dr. Ace kindly accepts pt to ER for eval. 23:28 ED course: post movement to ambulance, I was called to ambulance bay to reassess pt. Pt snw alert, oriented, blood pressure much lower than while pt in ED 100/50. NS bolus ordered and begun, Ambulance left bay and will get pt transported VETO to [place]. 10/24 18:55 Order name: CBC with Diff snw 10/24 18:55 Order name: Chem 7; Complete Time: 20: snw 10/24 18:55 Order name: PT-INR; Complete Time: 20: snw 10/24 18:55 Order name: Ptt, Activated; Complete Time: 20:07 snw 10/24 18:55 Order name: TS; Complete Time: 20:29 snw 10/24 18:56 Order name: CBC with Automated Diff; Complete Time: 20:07 EDMS 10/24 18:26 Order name: Head C Spine Mpr Wo Con; Complete Time: 18:46 EDMS 10/24 18:26 Order name: Pelvis Wo Cont; Complete Time: 18:46 EDMS 10/24 18:55 Order name: CT Pelvis w cont; Complete Time: 20:49 snw 10/24 22:19 Order name: NPO; Complete Time: 23:10 snw Administered Medications: 19:15 Not Given (Patient Refused): [place]ia 5 mg-325 mg 1 tabs PO once ph 21:10 Drug: fentaNYL (PF) 25 mcg Route: IVP; Site: left antecubital; ea 22:10 Follow up: Response: No adverse reaction rr5 22:30 Drug: fentaNYL (PF) 25 mcg Route: IVP; Site: right antecubital; ea 23:30 Follow up: Response: No adverse reaction rr5 23:03 Drug: fentaNYL (PF) 25 mcg Route: IVP; Site: left forearm; rr5 23:30 Follow up: Response: Other; given upon transfer rr5 23:05 Drug: hydrALAZINE 5 mg Route: IV; Rate: calculated rate; Site: left forearm; rr5 23:30 Follow up: Response: Other; IV Status: Completed infusion; given upon transfer rr5 Disposition: 10/24/18 21:31 Transfer ordered to [facility]. Diagnosis are Mildly displaced pubic rami fractures to left with mildly active bleeding and hematoma to left hemipelvis, Fall on same level, unspecified. - Reason for transfer: Higher level of care. - Accepting physician is Dr. Gabriela Ace. - Condition is Stable. - Problem is new. - Symptoms are unchanged. Signatures: Dispatcher [employer] EDLA Amita Rutherford, QUARRYING SPECIALIST-C QUARRYING SPECIALIST-Csnw Aliza Spain RN RN Piper Nagel, RN RN Mickey Maharaj, RN RN rr5 Corrections: (The following items were deleted from the chart) 18:42 18:39 Head C Spine MPR Wo Con+CT.RAD.BRZ ordered. EDLA EDLA 18:42 18:40 Pelvis Wo Cont+CT.RAD.BRZ ordered. EDLA EDLA 23:31 21:31 10/24/2018 21:31 Transfer ordered to [facility]. rr5 Diagnosis is Mildly displaced pubic rami fractures to left with mildly active bleeding and hematoma to left hemipelvis; Fall on same level, unspecified. Reason for transfer: Higher level of care. Accepting physician is Dr. Gabriela Ace. Condition is Stable. Problem is new. Symptoms are unchanged. snw
[2018-10-24] MEDS ORDERED: HYDRALAZINE HCL 20 MG/ML VIAL ONE (23:15)
[2018-10-25 01:11] VITALS: BP 203/105; TEMP 98.5; O2SAT 99
== END 2018-10-24 23:31 | disposition short-term general hospital (02) ==
LOC: ER 18:06
DX: S32.592A Other specified fracture of left pubis, initial encounter for closed fracture (principal); S30.0XXA Contusion of lower back and pelvis, initial encounter; W18.30XA Fall on same level, unspecified, initial encounter; Y93.89 Activity, other specified; Y92.9 Unspecified place or not applicable; Z79.01 Long term (current) use of anticoagulants; Z85.828 Personal history of other malignant neoplasm of skin; Z88.8 Allergy status to other drugs, medicaments and biological substances; I10 Essential (primary) hypertension; I48.91 Unspecified atrial fibrillation; E03.9 Hypothyroidism, unspecified
CPT/HCPCS: 85025; 80048; 36415; 86900; 86850; 85610; 86901; 85730; 70450; 72193; 72125; 72192; J0360; J3010

== ENCOUNTER 2018-10-30 13:07 | Inpatient (IN) | payer OTHER ==
--- OUTSIDE RECORDS SUMMARY | 2018-10-30 13:21 | XMS REPORT ---
:1930 [facility] Address [address] [place] [address] [address]. [address] [place] [address] Care Team Providers Name Role Phone Unavailable Unavailable Unavailable Problems This patient has no known problems. Allergies, Adverse Reactions, Alerts This patient has no known allergies or adverse reactions. Medications This patient has no known medications. Encounters Start End Encounter Admission Attending Care Care Encounter Date/Time Date/Time Type Type Clinicians Facility Department ID 2018-10-25 2018-10-25 Outpatient E [facility] MED [id number] 14:10:00 14:10:00
[2018-10-30] MEDS ORDERED: cloNIDine HCl 0.1 MG TAB PO PRN (13:51)
[2018-10-30] MEDS ORDERED: NA CHLORIDE 0.9% 1,000 ML IV SCH ×2 (14:00)
[2018-10-30 14:44] VITALS: BMI 21.7
--- NOTE | 2018-10-30 15:40 | RAD REPORT ---
EXAM DESCRIPTION: US - Abdomen Exam Limited - 10/30/2018 3:27 pm CLINICAL HISTORY: Abdominal pain COMPARISON: CT study January 2018, CT pelvis study October 24, 2018 FINDINGS: Limited abdomen examination requested of the liver and kidneys. Liver is 12.5 cm in maximu m dimension. No capsule nodularity or focal liver parenchymal lesion. Doppler evaluation shows normal velocity, flow direction and waveform of the portal vein. Right kidney is 9.9 x 3.5 x 6.2 cm. Left kidney is 8.7 x 3.7 x 3.4 cm. Renal cortical echogenicity th ickness are normal. No hydronephrosis or suspicious renal mass. Extrarenal pelvis noted on the right as an incidental finding. IMPRESSION: Normal liver ultrasound study. Normal ultrasound study the kidneys.
[2018-10-30 16:35] LABS: Absolute Lymphocytes (CBC) 0.6 K/uL (0.7-4.9); Basophils % 0.3 % (0-1.3); Hematocrit 33.1 % (36.0-45.0); Lymphocytes % 6.6 % (15.3-44.8); MPV 8.1 fL (7.6-11.3); RBC Red Blood Cell Count 3.72 M/uL (3.86-4.86)
[2018-10-30 16:47] LABS: Potassium 4.4 mmol/L (3.5-5.1)
[2018-10-30 17:00] LABS: Blood Morphology Comment NOT SEEN (NOT SEEN); Platelet Estimate ADEQ; Urine White Blood Cell Casts OK
[2018-10-30 17:13] LABS: Urine Appearance TURBID; Urine Bilirubin NEGATIVE (NEG); Urine Blood 2+ (NEG); Urine Color YELLOW; Urine Glucose NEGATIVE (NEG); Urine Protein 1+ (NEG)
[2018-10-30 17:28] LABS: Urine Microscopic Reflex ORDER UMIC
[2018-10-30 17:37] LABS: Urine Bacteria LOADED /HPF (<20); Urine Culture Reflex Order REFLEXED
[2018-10-30] MEDS: MORPHINE 2 MG/ML SYR IV PRN (19:12)
[2018-10-30] MEDS: ALPRAZOLAM 0.5 MG TABLET PO SCH (21:00)
[2018-10-30] MEDS: CIPROFLOXACIN 400mg IV 400 MG/200 ML BAG IV SCH (21:01)
[2018-10-30] MEDS: BISACODYL E.C. 5 MG TAB PO PRN (23:36)
[2018-10-31] MEDS ORDERED: NEBIVOLOL HCL 5 MG TAB PO ONE (01:25)
[2018-10-31] MEDS: cloNIDine HCl 0.1 MG TAB PO PRN ×2 (01:59→20:55)
[2018-10-31] MEDS: MORPHINE 2 MG/ML SYR IV PRN ×3 (02:36→18:28)
[2018-10-31 04:40] LABS: Absolute Lymphocytes (CBC) 0.5 K/uL (0.7-4.9); Basophils % 0.5 % (0-1.3); Hematocrit 28.3 % (36.0-45.0); Lymphocytes % 7.4 % (15.3-44.8); MPV 8.3 fL (7.6-11.3); RBC Red Blood Cell Count 3.22 M/uL (3.86-4.86)
[2018-10-31 04:58] LABS: Potassium 3.9 mmol/L (3.5-5.1); Thyroid Stimulating Hormone 1.58 uIU/mL (0.360-3.740)
[2018-10-31] MEDS ORDERED: LEVOTHYROXINE SOD 0.112 MG TAB PO SCH (06:30)
[2018-10-31] MEDS: LEVOTHYROXINE SOD 0.025 MG TAB PO SCH (06:52)
[2018-10-31] MEDS: LEVOTHYROXINE SOD 0.112 MG TAB PO SCH (06:52)
[2018-10-31] MEDS: ALPRAZOLAM 0.5 MG TABLET PO SCH (09:00)
[2018-10-31] MEDS: CIPROFLOXACIN 400mg IV 400 MG/200 ML BAG IV SCH ×2 (09:58→20:57)
[2018-10-31] MEDS: NEBIVOLOL HCL 5 MG TAB PO SCH (09:59)
[2018-10-31] MEDS: LOSARTAN POTASSIUM 50 MG TABLET PO SCH (09:59)
[2018-10-31] MEDS: APIXABAN 2.5 MG TABLET PO SCH ×2 (09:59→20:56)
[2018-10-31] MEDS: BISACODYL E.C. 5 MG TAB PO PRN (10:00)
[2018-10-31] MEDS ORDERED: ALPRAZOLAM 0.5 MG TABLET PO SCH (10:00)
[2018-10-31] MEDS: ALPRAZOLAM 0.25 MG TABLET PO SCH ×2 (10:09→20:55)
--- NOTE | 2018-10-31 12:46 | RAD REPORT ---
EXAM DESCRIPTION: CT - Pelvis Wo Cont - 10/31/2018 12:23 pm CLINICAL HISTORY: Pelvis Fracture Pain swelling. COMPARISON: Pelvis W/Cont dated 10/24/2018; Pelvis Wo Cont dated 10/24/2018 TECHNIQUE: All CT scans are performed using dose optimization technique as appropriate and may inclu de automated exposure control or mA/KV adjustment according to patient size. FINDINGS: Fracture of the superior and inferior pubic rami on the left is again seen. The previously noted left hemipelvis hematoma appears confluent but has not significantly increased in size. Moderate stool is present in the colon. Small amount of air seen in the urinary bladder. IMPRESSION: Left hemipelvis fractures are again seen without significant change. The left pelvic hem atoma appears somewhat more confluent and but has not significantly increased in size. Small amount of air is seen in the urinary bladder, which may indicate infection or recent instrument ation. A bladder injury cannot be completely excluded but is felt to be less likely.
--- NOTE | 2018-10-31 18:53 | PN ---
Date of Progress Note: 10/31/2018 Subjective: Patient hemoglobin dropped slightly so this is hydration factor. The patient had a Fole y catheter for 48 hours while in [place] accounts for the finding on the CT scan. The hematoma is ba sically stable. Vital Signs have improved considerably since last night. Would continue on Eliquis, therapy will be started on the healthy areas of her body tomorrow with minimal attention to the fractured pelvic and resulting leg and hip problem and discussion of the case was made with Orthopedics and felt that the weightbearing could be as tolerated and it may in fact take some time before she can tolerate much. So basically patient is bedridden and had no bowel movement, this will be addressed as well. Dulcola x suppository and possible Enemas. She has required some pain medication IV. Urinary tract infectio n is treated with antibiotics IV and the biggest problem obviously facing her for the next few weeks is the mobilization situation. However, patient can tolerate minimal bending of the knee on the affe cted limb and no tolerance for any hip or pelvic rotation, which obviously is a clinical situation fo r clot formation and therefore the Eliquis will be continued and monitored with her blood counts. De pending on her intake and her ability to mobilize, I feel that the patient will require inpatient car e at a nursing facility and to continue with her physical therapy. Think that she would qualify for inpatient status and this will be done by the secondary social studies teacher tomorrow. Her memory of the events is st ill unstable. However, she seemed more orientated today and probably because of the hydration factor and perhaps control of the urinary tract infection. HR/MODL Voice ID: [id number] Report ID: [id number]
[2018-10-31] MEDS: BISACODYL 10 MG RECTAL SUPP PR SCH (21:04)
--- NOTE | 2018-10-31 21:17 | HP ---
Date of Admission: 10/30/2018 Entrance Complaint: Painful pelvic and hip area, anorexia, altered mental status. History Of Present Illness: Patient's problem started 3 or 4 days ago when she fell at the assisted living facility where she had been, and she was brought to the emergency room markedly hypertensive. Workup included a CT scan which revealed a minimally displaced fracture of the inferior pubic ramus and the superior pubic ramus, closed. A hematoma was also seen in the inferior left , and due to the findings of a small amount of contrast within the hematoma, they felt there was a possibil ity it was actively bleeding and also fact that she was on Eliquis. Therefore, transfer a rrangements were made to [facility], which was done. She was kept there for a couple of d ays. There was no need at that time to do any interventional treatment. She was therefore discharge d on home health, home health aide, PT and OT, and it was felt she had to be in the home rather than the assisted living as she obviously could not take care of herself. The most significant problem wa s weightbearing. She was relatively comfortable as long she would move; however, any attempts to mov e her and sit produced severe pain. Had difficulty with the family moving her, transferring her, and she was seen by Home Health, who felt that she needed another level of care as well. This was confi rmed by the family. During this time, her intake decreased markedly and she had increasing bouts of altered mental status. It was therefore decided to admit her for more intensive care. Past Medical History: Patient has a history of AFib, therefore on Eliquis. She has had some arthrit ic problems in her back and knees. The question of compression fractures also came up. They were no john on the CAT scan. These seemed to be chronic in nature, undoubtedly causing some of her back pain . She has also had some eye problems including corneal transplants and a history of hypot hyroidism. Social History: Nonsmoker, nondrinker. Family History: Noncontributory. Physical Examination: General: Patient is an elderly, slightly cachectic-appearing female in no acute distress unless she is asked to move, which produces a marked amount of pain. Vital Signs: Stable when seen in the hospital, and her blood pressure, which had been monitored by h er family, apparently had settled down. Suspect the marked increase was secondary to significant jean-claude n and trauma. Head and Neck: Normocephalic. Pupils equal, reactive to light and accommodation. Fundi negative. Trachea midline. Thyroid not palpable. ENT: Negative. Chest: Clear to P and A. Cardiovascular: PMI, midclavicular line. Heart sounds normal. Peripheral pulses present and equal bilaterally. Abdomen: No organomegaly. Minimal tenderness in the left lower abdominal area and suprapubic area. No guarding, rebound, tenderness, or rigidity. Bowel sounds hypoactive. Extremities: Upper extremities normal. Right leg: Good motion in the hip and leg. However, on the left side, there is minimal motion in all directions at the hip. Tenderness over the pelvic area. Minimal motion in this area. Peripheral pulses present and equal bilaterally. Rectal/Pelvic: Deferred. Impression: Fractured pelvic, closed, with hematoma formation; altered mental status; dehydration se condary to anorexia; atrial fibrillation, controlled; hypertension, poor control. Plan: Patient will be admitted, placed on IV fluids. Pain management is a problem. Otherwise, elliot ent is just lying there, which obviously can contribute to her thrombotic scenario, and it was felt t hat she should be started on Eliquis, although this had been held for a couple of days when she was a t [place] due to the acuteness of the situation. Her hemoglobin was stable. It was therefore restar john. Consultation will be obtained with Orthopedics and Physical Therapy as well. Patient was place d in a plastic-type orthopedic device which seemed to cause more discomfort and this was discontinued here. Once she is seen by Orthopedic and Pain Control, the plan is to transfer her to a nursing [facility] facility as in present condition she cannot live by herself and it is impossible at this time for h er family to take care of her without causing a marked amount of pain. I feel appropriate that she be placed in a nursing ome at least in the immediate future. HR/MODL Voice ID: [id number]
[2018-10-31] MEDS: NA CHLORIDE 0.9% 1,000 ML IV SCH (22:25)
[2018-11-01] MEDS: MORPHINE 2 MG/ML SYR IV PRN ×2 (02:59→20:59)
[2018-11-01] MEDS: ONDANSETRON 4 MG/2 ML VIAL IV PRN (03:01)
[2018-11-01] MEDS: LEVOTHYROXINE SOD 0.025 MG TAB PO SCH (05:17)
[2018-11-01] MEDS: LEVOTHYROXINE SOD 0.112 MG TAB PO SCH (05:17)
[2018-11-01] MEDS: BISACODYL 10 MG RECTAL SUPP PR SCH (09:00)
[2018-11-01] MEDS: NEBIVOLOL HCL 5 MG TAB PO SCH (09:16)
[2018-11-01] MEDS: LOSARTAN POTASSIUM 50 MG TABLET PO SCH (09:16)
[2018-11-01] MEDS: APIXABAN 2.5 MG TABLET PO SCH ×2 (09:17→21:01)
[2018-11-01] MEDS: ALPRAZOLAM 0.25 MG TABLET PO SCH ×2 (09:17→21:01)
[2018-11-01] MEDS: CIPROFLOXACIN 400mg IV 400 MG/200 ML BAG IV SCH ×2 (09:17→21:01)
--- NOTE | 2018-11-01 17:27 | PN ---
Date of Progress Note: 11/01/2018 Patient basically status quo, although she had a bowel movement and made a slight increase in her danielle etite. Her pain is still present, especially with any motion and morphine was used to control this. Her orientation variable. She has been changed to inpatient status. Physical therapy will be infor med that according to the orthopedic surgeon patient can bear weight as tolerated. However, he felt it would be a few more days before she could tolerate anything so therapy should concentrate on the o ther areas of the body and leave the brace off. We will repeat her blood work and urine in the a.m. Continue with the present regimen with the possibility of transferring her to a intermediate [facility] on Monday. HR/MODL Voice ID: [id number] Report ID: [id number]
[2018-11-02] MEDS: MORPHINE 2 MG/ML SYR IV PRN ×3 (02:30→21:06)
[2018-11-02] MEDS: LEVOTHYROXINE SOD 0.025 MG TAB PO SCH (05:56)
[2018-11-02] MEDS: LEVOTHYROXINE SOD 0.112 MG TAB PO SCH (05:56)
[2018-11-02 07:03] LABS: Absolute Lymphocytes (CBC) 1.3 K/uL (0.7-4.9); Basophils % 0.6 % (0-1.3); Hematocrit 33.1 % (36.0-45.0); Lymphocytes % 20.6 % (15.3-44.8); MPV 7.8 fL (7.6-11.3); RBC Red Blood Cell Count 3.79 M/uL (3.86-4.86)
[2018-11-02 07:10] LABS: Potassium 4.1 mmol/L (3.5-5.1)
[2018-11-02] MEDS: ALPRAZOLAM 0.25 MG TABLET PO SCH (09:04)
[2018-11-02] MEDS: LOSARTAN POTASSIUM 50 MG TABLET PO SCH (09:04)
[2018-11-02] MEDS: NEBIVOLOL HCL 5 MG TAB PO SCH (09:04)
[2018-11-02] MEDS: CIPROFLOXACIN 400mg IV 400 MG/200 ML BAG IV SCH ×2 (09:05→21:09)
[2018-11-02] MEDS: APIXABAN 2.5 MG TABLET PO SCH ×2 (09:05→21:06)
[2018-11-02] MEDS: ONDANSETRON 4 MG/2 ML VIAL IV PRN (10:43)
[2018-11-02] MEDS: cloNIDine HCl 0.1 MG TAB PO PRN (11:40)
--- NOTE | 2018-11-02 15:24 | PN ---
Date of Progress Note: 11/02/2018 Patient is basically status quo as far as the motion is concern and her appetite. However, she did [facility] physical therapy evaluation, which she states she will cooperate with. However, she is also a sking for stronger pain medicine. However, she seems quite comfortable and pain from the fractured p [place] is going to limit in her activity level for the next little while. However, she is encouraged to follow up the other exercises given to her by physical therapy. The plan still is to move her to SNF unit on Monday. I will maintain the analgesics as it stands. However, this may be a problem in the SNF due to the hike of IV access and continue the antibiotics for 2 days and switch to p.o. medic ation. Blood pressure still mildly fluctuates, compatible with what she has been doing over the year s. She seems to respond over periods of time to the medication. We will not make any changes at pre sent. HR/MODL Voice ID: [id number] Report ID: [id number]
[2018-11-03] MEDS: ALPRAZOLAM 0.25 MG TABLET PO SCH ×3 (00:28→21:25)
[2018-11-03] MEDS: MORPHINE 2 MG/ML SYR IV PRN ×4 (02:05→17:05)
[2018-11-03] MEDS: LEVOTHYROXINE SOD 0.025 MG TAB PO SCH (05:35)
[2018-11-03] MEDS: LEVOTHYROXINE SOD 0.112 MG TAB PO SCH (05:35)
[2018-11-03 05:45] LABS: Absolute Lymphocytes (CBC) 0.6 K/uL (0.7-4.9); Basophils % 0.5 % (0-1.3); Hematocrit 29.4 % (36.0-45.0); Lymphocytes % 10.5 % (15.3-44.8); MPV 7.4 fL (7.6-11.3); RBC Red Blood Cell Count 3.34 M/uL (3.86-4.86)
[2018-11-03] MEDS: CIPROFLOXACIN 400mg IV 400 MG/200 ML BAG IV SCH ×2 (08:52→21:25)
[2018-11-03] MEDS: NEBIVOLOL HCL 5 MG TAB PO SCH (08:53)
[2018-11-03] MEDS: APIXABAN 2.5 MG TABLET PO SCH ×2 (08:54→21:25)
[2018-11-03] MEDS: LOSARTAN POTASSIUM 50 MG TABLET PO SCH (08:54)
[2018-11-03] MEDS ORDERED: HYDRALAZINE HCL 20 MG/ML VIAL IV PRN (10:41)
--- NOTE | 2018-11-03 13:53 | PN ---
Subjective: Patient is seen and examined. Chart reviewed and case discussed with RN. The patient is doing well. Does complain of some pain. Code status is full. Medications list reviewed. Hospitalist service covering for Dr. Altamirano over the weekend. Physical Examination: Vital Signs: Temperature 98.3; heart rate 95; blood pressure 257/103, improved to 162/108; respirations 20; O2 98% on room air. General: Awake, alert, oriented x3, not in any acute distress. Elderly female. CV: S1, S2. Peripheral pulses weak. Respiratory: Moving air well bilaterally. No wheezing. Gastrointestinal: Abdomen is soft, nontender, nondistended. Positive bowel sounds. Extremities: No clubbing, cyanosis, or edema. Musculoskeletal: Patient has severe arthritis and subsequent changes. Laboratory Data: WBC 6.2, hemoglobin and hematocrit 10.2 and 29.4, platelets 245, neutrophils 76%. Urine cultures growing out Escherichia coli. Assessment: An 88-year-old female with: 1. Fractured pelvis closed with hematoma formation, nonoperative. Dr. Altamirano has discussed case with Dr. Das. No surgical intervention was planned at this time. 2. Acute metabolic encephalopathy, improved. 3. Acute dehydration, improving. 4. Atrial fibrillation, chronic, rate controlled on Eliquis. 5. Essential hypertension, not well controlled. The patient's systolic is in the 200s. We will adjust medications at p.r.n. 6. Acute cystitis secondary to Escherichia coli with hematuria. The patient currently on Cipro, which is sensitive. Plan: Discharge to [facility]dc facility once accepted. /JANAY Voice ID: [id number] Report ID: [id number] LORENA
[2018-11-04] MEDS: MORPHINE 2 MG/ML SYR IV PRN ×5 (02:16→23:01)
[2018-11-04 06:06] LABS: Absolute Lymphocytes (CBC) 0.8 K/uL (0.7-4.9); Basophils % 0.5 % (0-1.3); Hematocrit 31.1 % (36.0-45.0); Lymphocytes % 12.8 % (15.3-44.8); MPV 7.2 fL (7.6-11.3)
[2018-11-04] MEDS: LEVOTHYROXINE SOD 0.112 MG TAB PO SCH (06:09)
[2018-11-04] MEDS: LEVOTHYROXINE SOD 0.025 MG TAB PO SCH (06:09)
[2018-11-04] MEDS: LOSARTAN POTASSIUM 50 MG TABLET PO SCH (08:18)
[2018-11-04] MEDS: CIPROFLOXACIN 400mg IV 400 MG/200 ML BAG IV SCH ×2 (08:18→20:22)
[2018-11-04] MEDS: ALPRAZOLAM 0.25 MG TABLET PO SCH ×2 (08:18→20:21)
[2018-11-04] MEDS: NEBIVOLOL HCL 5 MG TAB PO SCH (08:19)
[2018-11-04] MEDS: APIXABAN 2.5 MG TABLET PO SCH ×2 (08:19→20:21)
[2018-11-04] MEDS: NA CHLORIDE 0.9% 1,000 ML IV SCH (11:58)
--- NOTE | 2018-11-04 13:48 | PN ---
Date of Progress Note: 11/04/2018 Subjective: Patient was seen and examined. Chart reviewed and case discussed with RN. No acute events overnight. Medications: List reviewed. Physical Examination: Vital Signs: Temperature 98.4, heart rate 68, blood pressure 167/86, respirations 16, O2 of 97% on room air. General: Awake, alert, and oriented x3. Elderly female. No acute distress. CV: S1, S2. Respiratory: Moving air well bilaterally. Gastrointestinal: Abdomen is soft, nontender, nondistended. Positive bowel sounds. Extremities: No clubbing, cyanosis, edema. Neurologic: Nonfocal. Laboratory Data: Sodium 138, potassium 4, chloride 106, CO2 of 23, BUN 24, creatinine 0.67, glucose 101, calcium 8. WBC 6.4, H and H 10.5 and 31.1, platelets 269, neutrophils 73%. Urine culture growing out Escherichia coli. Assessment And Plan: An 88-year-old female with: 1. Fractured pelvis with pubic rami on the left, closed with hematoma formation, nonoperative. We will continue with pain control. 2. Acute metabolic encephalopathy, resolved. 3. Acute dehydration, improving. 4. Atrial fibrillation, chronic, rate controlled. Continue Eliquis. 5. Essential hypertension not well controlled. Blood pressure medications adjusted. 6. Acute cystitis with hematuria secondary to Escherichia coli. Continue Cipro. Plan: Discharge to residential facility once accepted. Transfer service back to Dr. Altamirano in . /JANAY Voice ID: [id number] Report ID: [id number] [facility]
[2018-11-05] MEDS: MORPHINE 2 MG/ML SYR IV PRN ×3 (05:46→15:02)
[2018-11-05] MEDS: LEVOTHYROXINE SOD 0.025 MG TAB PO SCH (05:46)
[2018-11-05] MEDS: LEVOTHYROXINE SOD 0.112 MG TAB PO SCH (05:46)
[2018-11-05 06:29] LABS: Absolute Lymphocytes (CBC) 1.1 K/uL (0.7-4.9); Basophils % 0.8 % (0-1.3); Hematocrit 29.7 % (36.0-45.0); Lymphocytes % 15.4 % (15.3-44.8); MPV 7.2 fL (7.6-11.3); RBC Red Blood Cell Count 3.34 M/uL (3.86-4.86)
[2018-11-05] MEDS: CIPROFLOXACIN 400mg IV 400 MG/200 ML BAG IV SCH (08:09)
[2018-11-05] MEDS: APIXABAN 2.5 MG TABLET PO SCH ×2 (08:10→20:01)
[2018-11-05] MEDS: ALPRAZOLAM 0.25 MG TABLET PO SCH ×2 (08:11→20:01)
[2018-11-05] MEDS: LOSARTAN POTASSIUM 50 MG TABLET PO SCH (08:11)
[2018-11-05] MEDS: NEBIVOLOL HCL 5 MG TAB PO SCH (08:11)
[2018-11-05 15:16] LABS: Urine Appearance CLOUDY; Urine Bilirubin NEGATIVE (NEG); Urine Blood NEGATIVE (NEG); Urine Color YELLOW; Urine Glucose NEGATIVE (NEG); Urine Protein NEGATIVE (NEG); Urine Specific Gravity 1.015 (1.005-1.030)
[2018-11-05 17:04] LABS: Urine Bacteria >50 /HPF (<20); Urine RBC <5 /HPF (NONE SEEN)
[2018-11-05 17:05] LABS: Urine Culture Reflex Order NOT NEEDED
[2018-11-05] MEDS: TRAMADOL HCL 50 MG TAB PO PRN (19:55)
[2018-11-05] MEDS: CIPROFLOXACIN HCL 500 MG TAB PO SCH (20:01)
[2018-11-06 06:14] LABS: Absolute Lymphocytes (CBC) 0.8 K/uL (0.7-4.9); Basophils % 0.9 % (0-1.3); Hematocrit 29.2 % (36.0-45.0); Lymphocytes % 12.9 % (15.3-44.8); MPV 7.3 fL (7.6-11.3); RBC Red Blood Cell Count 3.32 M/uL (3.86-4.86)
[2018-11-06] MEDS: LEVOTHYROXINE SOD 0.025 MG TAB PO SCH (06:18)
[2018-11-06] MEDS: TRAMADOL HCL 50 MG TAB PO PRN ×2 (06:18→13:21)
[2018-11-06] MEDS: LEVOTHYROXINE SOD 0.112 MG TAB PO SCH (06:18)
[2018-11-06] MEDS: NEBIVOLOL HCL 5 MG TAB PO SCH (08:32)
[2018-11-06] MEDS: CIPROFLOXACIN HCL 500 MG TAB PO SCH (08:33)
[2018-11-06] MEDS: LOSARTAN POTASSIUM 50 MG TABLET PO SCH (08:33)
[2018-11-06] MEDS: APIXABAN 2.5 MG TABLET PO SCH (08:33)
[2018-11-06] MEDS: ALPRAZOLAM 0.25 MG TABLET PO SCH (08:33)
[2018-11-06 08:39] VITALS: BP 195/76
[2018-11-06 09:11] VITALS: TEMP 97.8
[2018-11-06 13:21] VITALS: O2SAT 95
--- NOTE | 2018-11-06 14:37 | PN ---
Date of Progress Note: 11/05/2018 Patient seems slightly better today. She is more alert, orientated, still has significant complaints regarding her pain, however, does not request the IV medication on a frequent basis. Urinalysis is much improved and disposition, she has been accepted by SNF unit in [place] and she will be transfer red probably in the a.m. to continue on antibiotics for a couple of days, switching from IV to p.o. a nd in addition of tramadol, she will not have IV access for the morphine. Since she is comfortable a t rest and this probably will suffice. She has been encouraged to continue with physical therapy actively with therapist and passively while in bed and she will be discharged in fair conditi on. Final Diagnoses: Fractured pelvis; urinary tract infection; ; atrial fibrillation, control led; hypertension, fair control; coronary artery disease by history. HR/MODL Voice ID: [id number] Report ID: [id number]
== END 2018-11-06 13:15 | DRG 535 ==
LOC: 4TH 13:19 → OBSVTOIN 13:19 → INTOOBSV 13:19 → OBSVTOIN 11-01 12:17
PROVIDERS: ADMIT Family Medicine; ATTEND Family Medicine
DX: S32.82XA Multiple fractures of pelvis without disruption of pelvic ring, initial encounter for closed fracture (principal); G93.41 Metabolic encephalopathy; R64 Cachexia; N30.01 Acute cystitis with hematuria; W19.XXXA Unspecified fall, initial encounter; Y92.099 Unspecified place in other non-institutional residence as the place of occurrence of the external cause; I48.2 Chronic atrial fibrillation; B96.20 Unspecified Escherichia coli [E. coli] as the cause of diseases classified elsewhere; E86.0 Dehydration; R63.0 Anorexia; I10 Essential (primary) hypertension; E03.9 Hypothyroidism, unspecified; I25.10 Atherosclerotic heart disease of native coronary artery without angina pectoris; Z74.01 Bed confinement status; Z68.21 Body mass index [BMI] 21.0-21.9, adult; Z79.01 Long term (current) use of anticoagulants
CPT/HCPCS: 36415; 72192; 76705; 80048; 81001; 81003; 81015; 84443; 85025; 87077; 87086; 87088; 87186; 97110; 97163; 97530; G0378; J0360; J0744; J2270; J2405; J7030